=== PATIENT | female | born 1980 | race Caucasian/White ===

== ENCOUNTER 2017-12-08 07:50 | Emergency (ER) | payer OTHER ==
[2017-12-08 08:03] VITALS: RESP 18
[2017-12-08] MEDS ORDERED: RX INFO: IV CONTRAST WAS GIVEN 1 EACH MISC MISCELLANE PRN (08:12)
[2017-12-08] MEDS ORDERED: SODIUM CHLORIDE 0.9% 1,000 ML IV STA ×2 (08:12)
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
[2017-12-08 08:37] LABS: Basophils % (A) 0 %; Eosinophils # (A) 0.1 k/uL (0-0.7); Eosinophils % (A) 1 %; HCT 38.5 % (34.0-46.0); HGB 13.1 gm/dL (11.4-16.0); Lymphocytes # (A) 1.8 k/uL (1.0-4.8); Lymphocytes % (A) 16 %; MCV 85.4 fL (80.0-100.0); Mean Platelet Volume 10.1; Monocytes # (A) 0.5 k/uL (0-1.0); Monocytes % (A) 4 %; Neutrophils % (A) 78 %; Platelet Count 224 k/uL (150-450); RBC 4.51 m/uL (3.80-5.40); WBC 11.5 k/uL (3.8-10.6)
[2017-12-08 08:45] LABS: Appearance,Urine Clear (Clear); Bilirubin,Urine Negative (Negative); Blood,Urine Negative (Negative); Color,Urine Light Yellow; Glucose,Urine (UA) Negative (Negative); Ketones,Urine Negative (Negative); Leukocyte Esterase,Urine Negative (Negative); Nitrite,Urine Negative (Negative); Protein,Urine Negative (Negative); Specific Gravity,Urine 1.006 (1.001-1.035); Urobilinogen,Urine <2.0 mg/dL (<2.0)
[2017-12-08 08:59] LABS: Amphetamine Screen,Urine Detected (NotDetected); Barbiturate Screen,Urine Not Detected (NotDetected); Benzodiazepines Screen,Urine Not Detected (NotDetected); Cocaine Screen,Urine Not Detected (NotDetected); Methadone Screen, Urine Not Detected (NotDetected); Opiate Screen,Urine Not Detected (NotDetected); Oxycodone Screen, Urine Not Detected (NotDetected); Phencyclidine Screen,Urine Not Detected (NotDetected); Tricyclic Antidepressant,Urine Not Detected (NotDetected); Urn Cannabinoid Scrn Not Detected (NotDetected)
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
[2017-12-08 09:39] LABS: ALT 31 U/L (9-52); AST 27 U/L (14-36); Albumin 3.5 g/dL (3.5-5.0); Alkaline Phosphatase 36 U/L (38-126); Anion Gap 13 mmol/L; Blood Urea Nitrogen 10 mg/dL (7-17); Calcium 9.1 mg/dL (8.4-10.2); Carbon Dioxide 22 mmol/L (22-30); Chloride 109 mmol/L (98-107); Glucose 158 mg/dL (74-99); Potassium 4.1 mmol/L (3.5-5.1); Sodium 144 mmol/L (137-145); Total Bilirubin 0.2 mg/dL (0.2-1.3); Total Protein 5.9 g/dL (6.3-8.2)
[2017-12-08 09:46] LABS: Creatine Kinase 87 U/L (30-135)
[2017-12-08 09:48] LABS: Prothrombin Time 9.7 sec (9.0-12.0)
[2017-12-08 09:51] LABS: Partial Thromboplastin Time 21.4 sec (22.0-30.0)
[2017-12-08 09:59] LABS: Creatine Kinase MB 0.5 ng/mL (0.0-2.4); Troponin I <0.012 ng/mL (0.000-0.034)
[2017-12-08 10:16] VITALS: BP 171/90; PULSE 107; TEMP 98.5
== END 2017-12-08 10:30 | disposition home or self-care (01) ==
LOC: EC 07:50
DX: S20.219A Contusion of unspecified front wall of thorax, initial encounter (principal); S30.1XXA Contusion of abdominal wall, initial encounter; N83.201 Unspecified ovarian cyst, right side; Q04.6 Congenital cerebral cysts; M25.532 Pain in left wrist; I10 Essential (primary) hypertension; F32.9 Major depressive disorder, single episode, unspecified; Z79.899 Other long term (current) drug therapy; Z86.69 Personal history of other diseases of the nervous system and sense organs; Z90.49 Acquired absence of other specified parts of digestive tract; V49.40XA Driver injured in collision with unspecified motor vehicles in traffic accident, initial encounter; Y93.89 Activity, other specified; Y92.410 Unspecified street and highway as the place of occurrence of the external cause
CPT/HCPCS: 36415; 93005; 86900; 86901; 80053; 82550; 82553; 84484; 85025; 85610; 85730; 86850; 81003; 80306; 73110; 72125; 70450; 71260; 74177; 99285; 96360; 96361; Q9967

== ENCOUNTER → 2017-12-25 | Outpatient (CLI) | payer BC ==
--- NOTE | 2017-12-25 12:38 | USB ---
Reason for exam: clinical finding. History: Family history of breast cancer in maternal grandmother at age 60 and breast cancer in maternal cousin at age 25. Indicated problem(s): lump or thickening in the left breast. Physical Findings: Nurse Summary: right breast bruising with probable hematoma at nipple extending medial up into upper inner quadrant, all tender on exam (nurse ts). US Breast RT Right complete breast ultrasound includes all four quadrants, the retroareolar region and axilla. Finding demonstrates a 1.2 x 0.7 x 1.4cm cystic lesion at 1 o'clock and a 9.1cm mixed, complex lesion at 2 o'clock, large complex hematoma composed of several smaller hematomas. These results were verbally communicated with the patient and result sheet given to the patient on 12/25/17. ASSESSMENT: Probably benign, BI-RAD 3 RECOMMENDATION: Ultrasound of the right breast in 6 months. Manage patient on a clinical basis.
== END | disposition home or self-care (01) ==
LOC: RADUSWWP 11:22
PROVIDERS: ATTEND Obstetrics & Gynecology Obstetrics
DX: N63.10 Unspecified lump in the right breast, unspecified quadrant (principal); S20.01XA Contusion of right breast, initial encounter

== ENCOUNTER → 2018-07-05 | Outpatient (CLI) | payer BC ==
--- NOTE | 2018-07-05 13:56 | MM ---
Reason for exam: clinical finding. History: Family history of breast cancer in maternal grandmother at age 60 and breast cancer in maternal cousin at age 25. Took hormonal contraceptives for 10 years. Indicated problem(s): lump or thickening in the right breast. Physical Findings: Nurse Summary: 1 x 1.5cm nodule in the right breast at 1 o'clock (nurse ts). MG 3D Diag Mammo W/Cad ADRIANA Bilateral CC and MLO view(s) were taken. There are scattered fibroglandular densities. No suspicious calcifications are seen. There is no discrete abnormality including area of concern. These results were verbally communicated with the patient and result sheet given to the patient on 07/05/18. ASSESSMENT: Incomplete: need additional imaging evaluation, BI-RAD 0 RECOMMENDATION: Ultrasound of the right breast. Manage patient on a clinical basis.
--- NOTE | 2018-07-05 13:58 | USB ---
Reason for exam: clinical finding. History: Family history of breast cancer in maternal grandmother at age 60 and breast cancer in maternal cousin at age 25. Took hormonal contraceptives for 10 years. US Breast RT Right complete breast ultrasound includes all four quadrants, the retroareolar region and axilla. Finding demonstrates a 0.3 x 0.3 x 0.3cm lesion too small to characterize at 12 o'clock, a 0.4 x 0.4 x 0.3cm lesion too small to characterize at 1 o'clock and a 1.7 x 1.1 x 1.4cm mixed lesion at 2 o'clock. Hematomas have improved and/or resolved These results were verbally communicated with the patient and result sheet given to the patient on 07/05/18. ASSESSMENT: Probably benign, BI-RAD 3 RECOMMENDATION: Ultrasound of the right breast in 6 months.
== END ==
LOC: RADMAMWWP 07:39
PROVIDERS: ATTEND Obstetrics & Gynecology Obstetrics
DX: N63.10 Unspecified lump in the right breast, unspecified quadrant (principal); R92.8 Other abnormal and inconclusive findings on diagnostic imaging of breast
CPT/HCPCS: 77062; 77066

== ENCOUNTER → 2018-10-04 | Outpatient (CLI) | payer BC | END | disposition home or self-care (01) | LOC: LABPAT 07:07 | PROVIDERS: ATTEND Anesthesiology | DX: Z01.818 Encounter for other preprocedural examination (principal) | CPT/HCPCS: 93005 ==

== ENCOUNTER → 2019-04-05 | Outpatient (CLI) | payer OTHER ==
[2019-04-05 15:00] LABS: Anisocytosis Slight; Basophils % (A) 0 %; Eosinophils # (A) 0.2 k/uL (0-0.7); Eosinophils % (A) 2 %; HCT 33.6 % (34.0-46.0); HGB 10.7 gm/dL (11.4-16.0); Hypochromasia Slight; Lymphocytes # (A) 2.2 k/uL (1.0-4.8); Lymphocytes % (A) 25 %; MCH 25.9 pg (25.0-35.0); MCHC 31.7 g/dL (31.0-37.0); MCV 81.9 fL (80.0-100.0); Mean Platelet Volume 7.2; Monocytes # (A) 0.5 k/uL (0-1.0); Monocytes % (A) 6 %; Neutrophils # (A) 5.8 k/uL (1.3-7.7); Neutrophils % (A) 65 %; Platelet Count 304 k/uL (150-450); RBC 4.11 m/uL (3.80-5.40); RDW 16.1 % (11.5-15.5); WBC 8.9 k/uL (3.8-10.6)
== END | disposition home or self-care (01) ==
LOC: LABPAT 13:41
PROVIDERS: ATTEND Obstetrics & Gynecology Obstetrics
DX: Z01.812 Encounter for preprocedural laboratory examination (principal); Z01.818 Encounter for other preprocedural examination; I10 Essential (primary) hypertension; N92.0 Excessive and frequent menstruation with regular cycle; N83.201 Unspecified ovarian cyst, right side
CPT/HCPCS: 85025

== ENCOUNTER 2019-04-16 06:27 | Day surgery (SDC) | payer BC, OTHER ==
[2019-04-11 10:31] VITALS: BMI 52.3
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
[~2019-04-16 06:27] MED LIST: ACETAMINOPHEN IV (For NPO) 1,000 MG in EMPTY BAG 1 BAG IVPB ONE; DEXAMETHASONE SOD PHOSPHATE 10 MG/ML 1 ML VIAL IV ONE; LACTATED RINGERS 1,000 ML IV SCH; LIDOCAINE 1% 20 ML VIAL (10MG/ML) FOR IV START INTRADERMA PRN; MIDAZOLAM 2 MG/2 ML VIAL IV PRN; ONDANSETRON 4 MG/2 ML VIAL IVP ONE; Pre Op ABX Message 1 EACH MISC MISCELLANE ONE; SCOPOLAMINE 1.5MG/72HR PATCH TRANSDERM ONE
[2019-04-16] MEDS ORDERED: DEXAMETHASONE SOD PHOSPHATE 10 MG/ML 1 ML VIAL ONE (07:10)
[2019-04-16] MEDS ORDERED: MIDAZOLAM 2 MG/2 ML VIAL ONE ×2 (07:10→07:33)
[2019-04-16] MEDS ORDERED: ONDANSETRON 4 MG/2 ML VIAL ONE ×2 (07:10)
[2019-04-16] MEDS ORDERED: BUPIVACAINE (PF) 0.25% 30 ML VIAL ONE (07:10)
[2019-04-16] MEDS ORDERED: ROCURONIUM BROMIDE 10 MG/ML 10 ML VIAL IV ONE (07:33)
[2019-04-16] MEDS ORDERED: ePHEDrine SULFATE/0.9% NACL/PF 50 MG/5 ML SYRINGE IV ONE (07:33)
[2019-04-16] MEDS ORDERED: fentaNYL (PF) 50 MCG/ML 2 ML AMP ONE (07:33)
[2019-04-16] MEDS ORDERED: GLYCOPYRROLATE 0.2 MG/ML 2 ML VIAL ONE (07:33)
[2019-04-16] MEDS ORDERED: ACETAMINOPHEN IV (For NPO) 1,000 MG/100 ML VIAL ONE (07:33)
[2019-04-16] MEDS ORDERED: LIDOCAINE 1% INJ 10MG/ML (20 ML MDV) ONE (07:33)
[2019-04-16] MEDS ORDERED: KETOROLAC 30 MG/ML 1 ML VIAL ONE (07:33)
[2019-04-16] MEDS ORDERED: PROPOFOL 10 MG/ML 20 ML VIAL IV ONE (07:33)
[2019-04-16] MEDS ORDERED: NEOSTIGMINE 1 MG/ML 10 ML VIAL ONE (07:33)
[2019-04-16] MEDS ORDERED: SUCCINYLCHOLINE CHLORIDE VIAL 200 MG/10 ML VIAL IV ONE (07:33)
[2019-04-16] MEDS ORDERED: SODIUM CHLORIDE 0.9% 50 ML with ceFAZolin 2,000 MG IV ONE ×2 (07:55)
[2019-04-16] MEDS ORDERED: BUPIVACAINE (PF) 0.25% 30 ML VIAL SQ ONE (08:09)
[2019-04-16] MEDS ORDERED: LACTATED RINGERS 1,000 ML IV ONE (08:36)
--- NOTE | 2019-04-16 08:59 | P.OP ---
Date of Procedure: 04/16/19 Preoperative Diagnosis: Large right ovarian simple cyst, menorrhagia, failed medical treatment. Postoperative Diagnosis: Same plus paratubal cyst, right Procedure(s) Performed: Operative laparoscopy with drainage of right paratubal cyst, drainage of right ovarian cyst, hysteroscopy, dilation and curettage, endometrial ablation with NovaSure Anesthesia: LORRAINE Surgeon: Mar Cornejo Estimated Blood Loss (ml): 5 IV fluids (ml): 800 Urine output (ml): 100 Pathology: other (Endometrial curettings) Condition: stable Disposition: PACU Indications for Procedure: Irregular heavy menses, known large right ovarian simple appearing cyst with failed medical treatment of her periods. Patient desires endometrial ablation. Operative Findings: Large right paratubal cyst is noted, simple right ovarian cyst is noted in addition. Proliferative endometrial cavity is noted on hysteroscopy. Description of Procedure: Patient was seen in the preoperative area and informed consent Patient was taken back to the operating suite where general anesthesia was obtained without difficulty by the anesthesia department. She was then prepped and draped in normal sterile fashion in the dorsal lithotomy position. A red rubber catheter was then used to drain the bladder of clear yellow urine weighted speculum was placed in the posterior vaginal vault intralipids the cervix is visualized and an acorn uterine manipulator was advanced into the uterus as a means to manipulate the uterus throughout the procedure. Attention was then turned to the patient's abdomen where in the umbilical fold a small skin incision is made through this incision the 5 mm trocar and sleeve is placed with the laparoscope in place through the skin incision and toward the abdomen under direct visualization. CO2 insufflation was allowed to occur approximately 3 L of gas were used to obtain pneumoperitoneum. The above-noted findings were visualized. Lateral to the umbilicus on the right side a second 8 mm skin incision is made and a 8 mm trocar and sleeve is placed through the skin incision and toward the pneumoperitoneum under direct visualization. The Filshie clip applicator was then advanced into the abdomen and fallopian tubes were grasped and clamped with Filshie clips 2. Good application was noted bilaterally. The monopolar scissors one was then introduced into the abdomen the paratubal cyst was incised and drained. This was then repeated on the ovarian cyst. Clear straw-colored fluid was noted on both. The suction state tested nursing assistant was then used to drain the cyst fluid from the abdomen. At this point all instruments removed from the patient's abdomen and the skin incisions were closed with 4-0 Vicryl in a subarticular fashion. Attention was then turned to the patient's vaginal vault where the acorn uterine manipulator was removed from the patient's cervix the endocervical canal was then dilated to 16-Latvian, the hysteroscope was placed through the cervix and toward the endometrial cavity a proliferative endometrium was noted. At this time the hysteroscope was removed and sharp curettage was performed this specimen was then sent to pathology for analysis. The NovaSure device was then opened and set to the patient's uterine measurements a length of 6, width of 3.7, power of 122 for a cycle length of 77 seconds after cavity assessment was passed. At the cycle has completed the device was removed intact. The single-tooth tenaculum was taken off of the anterior lip the cervix and hemostasis was appreciated. All counts are correct 2 patient tolerated procedure well and was taken to the recovery room awake in stable condition.
[2019-04-16 09:02] VITALS: TEMP 97.4
[2019-04-16] MEDS: HYDROmorphone 0.5 MG/0.5 ML SYRINGE IVP PRN ×2 (09:52→10:01)
[2019-04-16] MEDS ORDERED: ONDANSETRON 4 MG/2 ML VIAL IVP ONE (10:54)
[2019-04-16] MEDS ORDERED: HYDROmorphone 0.5 MG/0.5 ML SYRINGE IVP ONE (10:54)
[2019-04-16 11:11] VITALS: RESP 18
[2019-04-16 11:29] VITALS: BP 126/72; PULSE 99
== END 2019-04-16 12:02 | disposition home or self-care (01) ==
LOC: OR 06:27
PROVIDERS: ATTEND Obstetrics & Gynecology Obstetrics
DX: Z30.2 Encounter for sterilization (principal); N84.0 Polyp of corpus uteri; N83.291 Other ovarian cyst, right side; N83.8 Other noninflammatory disorders of ovary, fallopian tube and broad ligament; D64.9 Anemia, unspecified; I10 Essential (primary) hypertension; R01.1 Cardiac murmur, unspecified; G47.33 Obstructive sleep apnea (adult) (pediatric); Z90.49 Acquired absence of other specified parts of digestive tract; E66.01 Morbid (severe) obesity due to excess calories; Z68.43 Body mass index [BMI] 50.0-59.9, adult; F41.9 Anxiety disorder, unspecified; R41.3 Other amnesia; F32.9 Major depressive disorder, single episode, unspecified; Z79.899 Other long term (current) drug therapy
CPT/HCPCS: 94660; 81025; 88305; 58563; 58679; 58671; J2250; J0330; J1100; J2710; J2405; J0690; J2001; J3010; J1885; J0131; J2704; J1170

== ENCOUNTER → 2019-05-01 | Outpatient (CLI) | payer OTHER ==
--- NOTE | 2019-05-01 17:10 | XR ---
EXAMINATION TYPE: XR chest 2V DATE OF EXAM: 05/01/2019 COMPARISON: NONE HISTORY: Cough and congestion TECHNIQUE: Frontal and lateral views of the chest are obtained. FINDINGS: Heart and mediastinum are normal. Lungs are clear. Diaphragm is normal. Bony thorax appear s normal. IMPRESSION: Normal chest
== END ==
LOC: LABWHC1 16:11
PROVIDERS: ATTEND Obstetrics & Gynecology Obstetrics
DX: R05 Cough (principal); R50.9 Fever, unspecified; R06.02 Shortness of breath; R09.89 Other specified symptoms and signs involving the circulatory and respiratory systems
CPT/HCPCS: 71046

== ENCOUNTER → 2019-09-30 | Outpatient (CLI) | payer OTHER | END | disposition home or self-care (01) | DX: N63.10 Unspecified lump in the right breast, unspecified quadrant (principal) ==

== ENCOUNTER → 2019-10-04 | Outpatient (CLI) | payer OTHER ==
--- NOTE | 2019-10-04 12:09 | MM ---
Reason for exam: additional evaluation requested from prior study. Last mammogram was performed 1 year and 3 months ago. History: Family history of breast cancer in maternal grandmother at age 60 and breast cancer in maternal cousin at age 25. Took hormonal contraceptives for 10 years. Physical Findings: Nurse did not find any significant physical abnormalities on exam. MG 3D Work Up W/Cad RT CC and MLO view(s) were taken of the right breast. Prior study comparison: July 05, 2018, bilateral MG 3d diag mammo w/cad ADRIANA. The breast tissue is heterogeneously dense. This may lower the sensitivity of mammography. There is a peripherally calcified area of fat necrosis/oil cysts at the site of recent ultrasound in the upper inner quadrant a 2 o'clock. This was smaller on the most recent ultrasound that the prior of 07/05/18. These results were verbally communicated with the patient and result sheet given to the patient on 10/04/19. ASSESSMENT: Benign, BI-RAD 2 RECOMMENDATION: Routine screening mammogram of both breasts at age 41. (or sooner if clinically indicated)
== END | disposition home or self-care (01) ==
LOC: RADMAMWWP 11:04
PROVIDERS: ATTEND Obstetrics & Gynecology Obstetrics
DX: N63.12 Unspecified lump in the right breast, upper inner quadrant (principal); Z80.3 Family history of malignant neoplasm of breast
CPT/HCPCS: 77061; 77065

== ENCOUNTER 2019-12-01 08:27 | Emergency (ER) | payer OTHER ==
[2019-12-01 08:33] VITALS: TEMP 98.5
[2019-12-01] MEDS ORDERED: ONDANSETRON 4 MG/2 ML VIAL IVP STA (08:43)
[2019-12-01] MEDS ORDERED: PANTOPRAZOLE 40 MG/10 ML VIAL IVP STA (08:43)
[2019-12-01] MEDS ORDERED: IOPAMIDOL CONTRAST (ORAL USE) VIAL PO PRN (08:43)
[2019-12-01] MEDS ORDERED: SODIUM CHLORIDE 0.9% 1,000 ML IV STA (08:43)
[2019-12-01] MEDS ORDERED: DICYCLOMINE 10 MG/ML 2 ML AMP IM STA (08:43)
--- NOTE | 2019-12-01 08:46 | ED ---
General Adult HPI - General Chief complaint: Abdominal Pain Stated complaint: Abd Pain Time Seen by Provider: 12/01/19 08:34 Source: patient, RN notes reviewed Mode of arrival: ambulatory Limitations: no limitations - History of Present Illness Initial comments: Patient is a pleasant 39-year-old female presenting to the emergency Department with complaints of abdominal discomfort. Patient has had chronic abdominal problems for years, she questions if this is from having her gallbladder removed. Patient states she frequently has discomfort with eating and loose stools. Patient has had some minimal amount of blood in stools over the past month. Over the past week patient has had some discomfort left upper abdomen. Discomfort is moderate. Patient does get some nausea. No fever. - Related Data Home Medications Medication Instructions Recorded Confirmed Ferrous Sulfate [Feosol] 325 mg PO DAILY 12/08/17 04/16/19 Loratadine [Claritin] 10 mg PO DAILY PRN 12/08/17 04/16/19 Multivitamins, Thera [Multivitamin 1 tab PO DAILY 12/08/17 04/16/19 (formulary)] amLODIPine [Norvasc] 5 mg PO QAM 04/11/19 04/16/19 Misoprostol [Cytotec] 200 mcg PO ONCE 04/16/19 04/16/19 Previous Rx's Medication Instructions Recorded Dicyclomine [Bentyl] 20 mg PO QID #20 tablet 12/01/19 Ondansetron Odt [Zofran Odt] 4 mg PO Q8HR PRN #10 tab 12/01/19 Pantoprazole [Protonix] 40 mg PO DAILY #30 tablet. 12/01/19 Allergies Allergy/AdvReac Type Severity Reaction Status Date / Time No Known Allergies Allergy Verified 04/16/19 06:47 Review of Systems ROS Statement: Those systems with pertinent positive or pertinent negative responses have been documented in the HPI. ROS Other: All systems not noted in ROS Statement are negative. Constitutional: Denies: fever Eyes: Denies: eye pain ENT: Denies: ear pain Respiratory: Denies: cough Cardiovascular: Denies: chest pain Endocrine: Denies: fatigue Gastrointestinal: Reports: as per HPI, abdominal pain, nausea. Denies: vomiting Genitourinary: Denies: dysuria Musculoskeletal: Denies: back pain Skin: Denies: rash Neurological: Denies: weakness Past Medical History Past Medical History: Hypertension, Memory Impairment, Sleep Apnea/CPAP/BIPAP, Syncope Additional Past Medical History / Comment(s): Has had heart murmur since . Occasional heart paliptations. 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 No CPAP use. History of Any Multi-Drug Resistant Organisms: None Reported Past Surgical History: Cholecystectomy, Tubal Ligation Past Anesthesia/Blood Transfusion Reactions: No Reported Reaction Past Psychological History: Anxiety, Depression Smoking Status: Never smoker Past Alcohol Use History: Rare Past Drug Use History: None Reported - Past Family History Father Family Medical History: Unable to Obtain Mother Family Medical History: Congestive Heart Failure (CHF), CVA/TIA, Hyperlipidemia, Hypertension Brother(s) Family Medical History: Cancer General Exam Limitations: no limitations General appearance: alert, in no apparent distress, obese Head exam: Present: normocephalic Eye exam: Present: normal appearance Neck exam: Present: normal inspection Respiratory exam: Present: normal lung sounds bilaterally Cardiovascular Exam: Present: regular rate, normal rhythm Expanded Peripheral pulses: 2+: Dorsalis Pedis (R), Dorsalis Pedis (L) GI/Abdominal exam: Present: soft, tenderness (Mild to moderate tenderness left upper quadrant), normal bowel sounds. Absent: distended, guarding, rebound, pulsatile mass, hernia Extremities exam: Present: normal inspection Neurological exam: Present: alert Psychiatric exam: Present: normal affect, normal mood Skin exam: Present: normal color Course Vital Signs 12/01/19 08:31 Temperature 98.5 F Pulse Rate 82 Respiratory 16 Rate Blood Pressure 180/94 O2 Sat by Pulse 97 Oximetry Medical Decision Making - Medical Decision Making Patient reevaluated and resting comfortably in bed. Abdomen soft and nontender. Patient updated on results and need for follow-up. Patient states she has previously seen Dr. Cornejo for her right ovary and will follow-up again. Patient also advised follow-up with GI for endoscopy. - Lab Data Result diagrams: 12/01/19 09:00 12/01/19 09:00 Lab Results 12/01/19 12/01/19 12/01/19 Range/Units 09:00 09:00 09:00 WBC 9.0 (3.8-10.6) k/uL RBC 4.86 (3.80-5.40) m/uL Hgb 13.2 (11.4-16.0) gm/dL Hct 40.7 (34.0-46.0) % MCV 83.7 (80.0-100.0) fL MCH 27.1 (25.0-35.0) pg MCHC 32.4 (31.0-37.0) g/dL RDW 14.8 (11.5-15.5) % Plt Count 228 (150-450) k/uL Neutrophils % 63 % Lymphocytes % 25 % Monocytes % 7 % Eosinophils % 2 % Basophils % 0 % Neutrophils # 5.7 (1.3-7.7) k/uL Lymphocytes # 2.3 (1.0-4.8) k/uL Monocytes # 0.6 (0-1.0) k/uL Eosinophils # 0.1 (0-0.7) k/uL Basophils # 0.0 (0-0.2) k/uL PT 9.7 (9.0-12.0) sec INR 0.9 (<1.2) APTT 22.4 (22.0-30.0) sec Sodium (137-145) mmol/L Potassium (3.5-5.1) mmol/L Chloride (98-107) mmol/L Carbon Dioxide (22-30) mmol/L Anion Gap mmol/L BUN (7-17) mg/dL Creatinine (0.52-1.04) mg/dL Est GFR (CKD-EPI)AfAm (>60 ml/min/1.73 sqM) Est GFR (CKD-EPI)NonAf (>60 ml/min/1.73 sqM) Glucose (74-99) mg/dL Calcium (8.4-10.2) mg/dL Total Bilirubin (0.2-1.3) mg/dL AST (14-36) U/L ALT (4-34) U/L Alkaline Phosphatase (38-126) U/L Total Protein (6.3-8.2) g/dL Albumin (3.5-5.0) g/dL Amylase (30-110) U/L Lipase (23-300) U/L Urine Color Yellow Urine Appearance Cloudy H (Clear) Urine pH 5.5 (5.0-8.0) Ur Specific [place] 1.027 (1.001-1.035) Urine Protein Trace H (Negative) Urine Glucose (UA) Negative (Negative) Urine Ketones Negative (Negative) Urine Blood Trace H (Negative) Urine Nitrite Negative (Negative) Urine Bilirubin Negative (Negative) Urine Urobilinogen <2.0 (<2.0) mg/dL Ur Leukocyte Esterase Large H (Negative) Urine RBC 6 H (0-5) /hpf Urine WBC 11 H (0-5) /hpf Ur Squamous Epith Cells 20 H (0-4) /hpf Amorphous Sediment Rare H (None) /hpf Urine Bacteria Occasional H (None) /hpf Urine Mucus Rare H (None) /hpf 12/01/19 Range/Units 09:00 WBC (3.8-10.6) k/uL RBC (3.80-5.40) m/uL Hgb (11.4-16.0) gm/dL Hct (34.0-46.0) % MCV (80.0-100.0) fL MCH (25.0-35.0) pg MCHC (31.0-37.0) g/dL RDW (11.5-15.5) % Plt Count (150-450) k/uL Neutrophils % % Lymphocytes % % Monocytes % % Eosinophils % % Basophils % % Neutrophils # (1.3-7.7) k/uL Lymphocytes # (1.0-4.8) k/uL Monocytes # (0-1.0) k/uL Eosinophils # (0-0.7) k/uL Basophils # (0-0.2) k/uL PT (9.0-12.0) sec INR (<1.2) APTT (22.0-30.0) sec Sodium 139 (137-145) mmol/L Potassium 3.6 (3.5-5.1) mmol/L Chloride 100 (98-107) mmol/L Carbon Dioxide 27 (22-30) mmol/L Anion Gap 12 mmol/L BUN 14 (7-17) mg/dL Creatinine 0.60 (0.52-1.04) mg/dL Est GFR (CKD-EPI)AfAm >90 (>60 ml/min/1.73 sqM) Est GFR (CKD-EPI)NonAf >90 (>60 ml/min/1.73 sqM) Glucose 151 H (74-99) mg/dL Calcium 9.9 (8.4-10.2) mg/dL Total Bilirubin 0.3 (0.2-1.3) mg/dL AST 30 (14-36) U/L ALT 24 (4-34) U/L Alkaline Phosphatase 58 (38-126) U/L Total Protein 7.6 (6.3-8.2) g/dL Albumin 4.5 (3.5-5.0) g/dL Amylase 44 (30-110) U/L Lipase 342 H (23-300) U/L Urine Color Urine Appearance (Clear) Urine pH (5.0-8.0) Ur Specific [place] (1.001-1.035) Urine Protein (Negative) Urine Glucose (UA) (Negative) Urine Ketones (Negative) Urine Blood (Negative) Urine Nitrite (Negative) Urine Bilirubin (Negative) Urine Urobilinogen (<2.0) mg/dL Ur Leukocyte Esterase (Negative) Urine RBC (0-5) /hpf Urine WBC (0-5) /hpf Ur Squamous Epith Cells (0-4) /hpf Amorphous Sediment (None) /hpf Urine Bacteria (None) /hpf Urine Mucus (None) /hpf - Radiology Data Radiology results: image reviewed (Enlarged cystic lesion right ovary. Hepatomegaly.) Disposition Clinical Impression: Abdominal pain Disposition: HOME SELF-CARE Condition: Stable Instructions (If sedation given, give patient instructions): Abdominal Pain (ED) Additional Instructions: Please follow-up with primary care physician in the next couple days for recheck. Also follow-up with GI and [facility]S ADMINISTRATOR. you will likely need endoscopy. Have ARTS ADMINISTRATOR evaluate computed tomography scan. Prescription sent to [facility] in [place] Prescriptions: Dicyclomine [Bentyl] 20 mg PO QID #20 tablet Pantoprazole [Protonix] 40 mg PO DAILY #30 tablet. Ondansetron Odt [Zofran Odt] 4 mg PO Q8HR PRN #10 tab PRN Reason: Nausea Is patient prescribed a controlled substance at d/c from ED?: No Referrals: Keagan Garrison MD [Primary Care Provider] - 1-2 days Mar Cornejo DO [Doctor of Osteopathic Medicine] - 1-2 days Wali Chavez MD [STAFF PHYSICIAN] - 1-2 days Time of Disposition: 10:01
[2019-12-01 09:29] LABS: ALT 24 U/L (4-34); AST 30 U/L (14-36); African American GFR (CKD) >90 (>60 ml/min/1.73 sqM); Albumin 4.5 g/dL (3.5-5.0); Alkaline Phosphatase 58 U/L (38-126); Amylase 44 U/L (30-110); Anion Gap 12 mmol/L; Blood Urea Nitrogen 14 mg/dL (7-17); Calcium 9.9 mg/dL (8.4-10.2); Carbon Dioxide 27 mmol/L (22-30); Chloride 100 mmol/L (98-107); Glucose 151 mg/dL (74-99); Non-African American GFR(CKD) >90 (>60 ml/min/1.73 sqM); Potassium 3.6 mmol/L (3.5-5.1); Sodium 139 mmol/L (137-145); Total Bilirubin 0.3 mg/dL (0.2-1.3); Total Protein 7.6 g/dL (6.3-8.2)
[2019-12-01 09:32] LABS: INR 0.9 (<1.2); Partial Thromboplastin Time 22.4 sec (22.0-30.0); Prothrombin Time 9.7 sec (9.0-12.0)
[2019-12-01 09:41] LABS: Basophils % (A) 0 %; Eosinophils # (A) 0.1 k/uL (0-0.7); Eosinophils % (A) 2 %; HCT 40.7 % (34.0-46.0); HGB 13.2 gm/dL (11.4-16.0); Lymphocytes # (A) 2.3 k/uL (1.0-4.8); Lymphocytes % (A) 25 %; MCH 27.1 pg (25.0-35.0); MCHC 32.4 g/dL (31.0-37.0); MCV 83.7 fL (80.0-100.0); Mean Platelet Volume 8.3; Monocytes # (A) 0.6 k/uL (0-1.0); Monocytes % (A) 7 %; Neutrophils # (A) 5.7 k/uL (1.3-7.7); Neutrophils % (A) 63 %; Platelet Count 228 k/uL (150-450); RBC 4.86 m/uL (3.80-5.40); RDW 14.8 % (11.5-15.5)
[2019-12-01 09:49] LABS: Amorphous Sediment,Urine Rare /hpf; Appearance,Urine Cloudy (Clear); Bacteria,Urine Occasional /hpf; Bilirubin,Urine Negative (Negative); Blood,Urine Trace (Negative); Color,Urine Yellow; Glucose,Urine (UA) Negative (Negative); Ketones,Urine Negative (Negative); Leukocyte Esterase,Urine Large (Negative); Mucus,Urine Rare /hpf; Nitrite,Urine Negative (Negative); PH, Urine 5.5 (5.0-8.0); Protein,Urine Trace (Negative); RBC,Urine 6 /hpf (0-5); Specific Gravity,Urine 1.027 (1.001-1.035); Squamous Epithelial Cell,Urine 20 /hpf (0-4); Urobilinogen,Urine <2.0 mg/dL (<2.0); WBC,Urine 11 /hpf (0-5)
--- NOTE | 2019-12-01 09:50 | CT ---
EXAMINATION TYPE: CT abdomen pelvis w con DATE OF EXAM: 12/01/2019 REFERENCE: Previous CT scan of the chest, abdomen and pelvis dated 12/08/2017. HISTORY: 15 minute oral contrast, abdominal pain HISTORY: LUQ pain REFERENCE: NONE CT DLP: 3341 mGy Automated exposure control for dose reduction was used. TECHNIQUE: Helical acquisition through the abdomen and pelvis was obtained following the oral ingesti on of with Oral Contrast and following intravenous administration of 100 mL of Isovue 300. The data w as reformatted in axial, coronal and sagittal projections. FINDINGS: Visualized portions of the lungs are clear. There is no pleural or pericardial fluid. The heart is minimally enlarged. Within the abdomen, the liver is enlarged measuring 25 cm. It is low in attenuation and likely fatty infiltrated. The gallbladder is been removed. The spleen is unremarkable. Both adrenal glands are normal. Both kidneys demonstrate function and appear morphologically normal. The pancreas is unremarkable. There is no significant retroperitoneal, iliac or inguinal adenopathy. The bladder is unremarkable. The uterus is normal. There is been a previous tubal ligation. There is a midline cystic lesion measuring 11.5 x 8.4 x 9.4 cm in the midline and slightly eccentric towards the right within the pelvis. Previously this measured 6.7 x 5.8 x 4.8 cm. There is no significant diverticular change and there is no radiographic evidence of diverticulitis. The appendix is normal. Small bowel loops are normal in caliber. There is no free fluid and no free air. No osseous lesion is seen. IMPRESSION: 1. ENLARGING CYSTIC LESION INVOLVING LIKELY THE RIGHT OVARY. THIS HAS GROWN SLOWLY OVER THE PREVIOUS 2 YEARS MAKING MALIGNANT NEOPLASM UNLIKELY. A CYSTADENOMA, HOWEVER, COULD HAVE THIS APPEARANCE. 2. HEPATOMEGALY AND FATTY INFILTRATION OF THE LIVER. 3. MILD CARDIOMEGALY.
[2019-12-01 10:45] VITALS: BP 142/79; PULSE 88; RESP 18
== END 2019-12-01 10:45 | disposition home or self-care (01) ==
LOC: EC 08:27
DX: R10.9 Unspecified abdominal pain (principal); R11.0 Nausea; R19.7 Diarrhea, unspecified; I10 Essential (primary) hypertension; Z79.899 Other long term (current) drug therapy; Z90.49 Acquired absence of other specified parts of digestive tract
CPT/HCPCS: 36415; 80053; 82150; 83690; 85025; 85610; 85730; 81001; 87086; 74177; 99284; 96374; 96375; 96361 ×2; 96372; J0500; J2405; C9113; Q9967

== ENCOUNTER 2021-05-11 18:35 | Emergency (ER) | payer BC, OTHER ==
--- NOTE | 2021-05-11 21:21 | ED ---
General Adult HPI - General Source: patient, RN notes reviewed, old records reviewed Mode of arrival: ambulatory Limitations: no limitations - History of Present Illness -: month(s) (6) Location: abdomen, pelvis Severity scale (1-10): 4 <Robin Aguirre - Last Filed: 05/11/21 21:29> <Sander Mendez - Last Filed: 05/12/21 02:06> - General Chief complaint: Abdominal Pain Stated complaint: pelvic pain Time Seen by Provider: 05/11/21 21:08 - History of Present Illness Initial comments: 41-year-old well-appearing female presents to the emergency room with complaints of 6 months of pelvic pain. Patient states she seen her DRILL PRESS HAND and is scheduled to have an ultrasound next week however she states that she does have jury duty next week and wants the ultrasound now. She denies any vaginal bleeding. She states that she has been having some rectal bleeding as well as past 6 months states sometimes it is just on the paper and sometimes it is in the toilet. She is in color. She has a history of a martha, tubal ligation and ablation. She states that she did see Dr. Jacob in the past but now it is gone. She was told that she does need to have a colonoscopy but she has not scheduled that. Patient is very anxious and is concerned for ovarian cancer. She states that her paternal grandmother had reproductive cancer and her half-brother had a cancer that metastasized to his bones and he . (Robin Aguirre) - Related Data Home Medications Medication Instructions Recorded Confirmed Ferrous Sulfate [Feosol] 325 mg PO DAILY 12/08/17 05/11/21 Loratadine [Claritin] 10 mg PO DAILY PRN 12/08/17 05/11/21 Amlodipine(Unknown Dose) 1 tab PO DAILY 05/11/21 05/11/21 Ergocalciferol [Vitamin D2 (1250 1,250 mcg PO MO 05/11/21 05/11/21 Mcg = 46953 Iu)] Fluticasone Nasal [place] [Flonase 1 spray EA NOSTRIL DAILY PRN 05/11/21 05/11/21 Nasal [place]] Allergies Allergy/AdvReac Type Severity Reaction Status Date / Time No Known Allergies Allergy Verified 05/11/21 18:59 Review of Systems ROS Other: All systems not noted in ROS Statement are negative. <Robin Aguirre - Last Filed: 05/11/21 21:29> ROS Other: All systems not noted in ROS Statement are negative. <Sander Mendez - Last Filed: 05/12/21 02:06> ROS Statement: Those systems with pertinent positive or pertinent negative responses have been documented in the HPI. Past Medical History Past Medical History: Hypertension, Memory Impairment, Sleep Apnea/CPAP/BIPAP, Syncope Additional Past Medical History / Comment(s): Has had heart murmur since . Occasional heart paliptations. 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 No CPAP use. History of Any Multi-Drug Resistant Organisms: None Reported Past Surgical History: Cholecystectomy, Tubal Ligation Past Anesthesia/Blood Transfusion Reactions: No Reported Reaction Past Psychological History: Anxiety, Depression Smoking Status: Never smoker Past Alcohol Use History: Rare Past Drug Use History: None Reported - Past Family History Father Family Medical History: Unable to Obtain Mother Family Medical History: Congestive Heart Failure (CHF), CVA/TIA, Hyperlipidemia, Hypertension Brother(s) Family Medical History: Cancer <Robin Aguirre - Last Filed: 05/11/21 21:29> General Exam Limitations: no limitations General appearance: alert, in no apparent distress Head exam: Present: atraumatic, normocephalic, normal inspection Eye exam: Present: normal appearance, PERRL, EOMI. Absent: scleral icterus, conjunctival injection, periorbital swelling ENT exam: Present: normal exam, normal oropharynx, mucous membranes moist Neck exam: Present: normal inspection, full ROM. Absent: tenderness, meningismus, lymphadenopathy Respiratory exam: Present: normal lung sounds bilaterally. Absent: respiratory distress, wheezes, rales, rhonchi, stridor Cardiovascular Exam: Present: normal rhythm, tachycardia, normal heart sounds. Absent: systolic murmur, diastolic murmur, rubs, gallop, clicks GI/Abdominal exam: Present: soft, normal bowel sounds. Absent: distended, tenderness, guarding, rebound, rigid, mass Extremities exam: Present: normal inspection, full ROM, normal capillary refill. Absent: tenderness, pedal edema, joint swelling, calf tenderness Back exam: Present: full ROM. Absent: tenderness, CVA tenderness (R), CVA tenderness (L), rash noted Neurological exam: Present: alert, oriented X3 Psychiatric exam: Present: normal affect, anxious Skin exam: Present: warm, dry, intact, normal color. Absent: rash, cyanosis, diaphoretic, petechiae, pallor <Robin Aguirre - Last Filed: 05/11/21 21:29> Course Vital Signs 05/11/21 05/11/21 05/12/21 18:57 22:37 00:26 Temperature 100.1 F H Pulse Rate 109 H 96 Respiratory 20 16 Rate Blood Pressure 201/102 148/106 148/91 O2 Sat by Pulse 98 96 Oximetry Medical Decision Making - Lab Data Result diagrams: 05/11/21 22:25 05/11/21 22:25 <Sander Mendez - Last Filed: 05/12/21 02:06> - Lab Data Lab Results 05/11/21 05/11/21 05/11/21 Range/Units 22:25 22:25 22:25 WBC 11.1 H (3.8-10.6) k/uL RBC 5.20 (3.80-5.40) m/uL Hgb 13.9 (11.4-16.0) gm/dL Hct 43.5 (34.0-46.0) % MCV 83.6 (80.0-100.0) fL MCH 26.7 (25.0-35.0) pg MCHC 32.0 (31.0-37.0) g/dL RDW 14.3 (11.5-15.5) % Plt Count 249 (150-450) k/uL MPV 7.8 Neutrophils % 70 % Lymphocytes % 21 % Monocytes % 5 % Eosinophils % 1 % Basophils % 1 % Neutrophils # 7.8 H (1.3-7.7) k/uL Lymphocytes # 2.3 (1.0-4.8) k/uL Monocytes # 0.6 (0-1.0) k/uL Eosinophils # 0.2 (0-0.7) k/uL Basophils # 0.1 (0-0.2) k/uL PT 10.4 (9.0-12.0) sec INR 1.0 (<1.2) APTT 22.5 (22.0-30.0) sec Sodium (137-145) mmol/L Potassium (3.5-5.1) mmol/L Chloride (98-107) mmol/L Carbon Dioxide (22-30) mmol/L Anion Gap mmol/L BUN (7-17) mg/dL Creatinine (0.52-1.04) mg/dL Est GFR (CKD-EPI)AfAm (>60 ml/min/1.73 sqM) Est GFR (CKD-EPI)NonAf (>60 ml/min/1.73 sqM) Glucose (74-99) mg/dL Lactic Ac Sepsis Rflx Plasma Lactic Acid Juvenal (0.7-2.0) mmol/L Calcium (8.4-10.2) mg/dL Total Bilirubin (0.2-1.3) mg/dL AST (14-36) U/L ALT (4-34) U/L Alkaline Phosphatase (38-126) U/L Total Protein (6.3-8.2) g/dL Albumin (3.5-5.0) g/dL Amylase (30-110) U/L Lipase (23-300) U/L Urine Color Yellow Urine Appearance Clear (Clear) Urine pH 6.5 (5.0-8.0) Ur Specific [place] 1.014 (1.001-1.035) Urine Protein Negative (Negative) Urine Glucose (UA) Negative (Negative) Urine Ketones Negative (Negative) Urine Blood Negative (Negative) Urine Nitrite Negative (Negative) Urine Bilirubin Negative (Negative) Urine Urobilinogen <2.0 (<2.0) mg/dL Ur Leukocyte Esterase Negative (Negative) 05/11/21 05/11/21 05/11/21 Range/Units 22:25 22:25 22:46 WBC (3.8-10.6) k/uL RBC (3.80-5.40) m/uL Hgb (11.4-16.0) gm/dL Hct (34.0-46.0) % MCV (80.0-100.0) fL MCH (25.0-35.0) pg MCHC (31.0-37.0) g/dL RDW (11.5-15.5) % Plt Count (150-450) k/uL MPV Neutrophils % % Lymphocytes % % Monocytes % % Eosinophils % % Basophils % % Neutrophils # (1.3-7.7) k/uL Lymphocytes # (1.0-4.8) k/uL Monocytes # (0-1.0) k/uL Eosinophils # (0-0.7) k/uL Basophils # (0-0.2) k/uL PT (9.0-12.0) sec INR (<1.2) APTT (22.0-30.0) sec Sodium 137 (137-145) mmol/L Potassium 4.0 (3.5-5.1) mmol/L Chloride 99 (98-107) mmol/L Carbon Dioxide 27 (22-30) mmol/L Anion Gap 11 mmol/L BUN 9 (7-17) mg/dL Creatinine 0.55 (0.52-1.04) mg/dL Est GFR (CKD-EPI)AfAm >90 (>60 ml/min/1.73 sqM) Est GFR (CKD-EPI)NonAf >90 (>60 ml/min/1.73 sqM) Glucose 173 H (74-99) mg/dL Lactic Ac Sepsis Rflx Y Plasma Lactic Acid Juvenal 2.5 H* (0.7-2.0) mmol/L Calcium 9.6 (8.4-10.2) mg/dL Total Bilirubin 0.5 (0.2-1.3) mg/dL AST 59 H (14-36) U/L ALT 38 H (4-34) U/L Alkaline Phosphatase 68 (38-126) U/L Total Protein 7.7 (6.3-8.2) g/dL Albumin 4.3 (3.5-5.0) g/dL Amylase 43 (30-110) U/L Lipase 192 (23-300) U/L Urine Color Urine Appearance (Clear) Urine pH (5.0-8.0) Ur Specific [place] (1.001-1.035) Urine Protein (Negative) Urine Glucose (UA) (Negative) Urine Ketones (Negative) Urine Blood (Negative) Urine Nitrite (Negative) Urine Bilirubin (Negative) Urine Urobilinogen (<2.0) mg/dL Ur Leukocyte Esterase (Negative) 05/12/21 Range/Units 01:15 WBC (3.8-10.6) k/uL RBC (3.80-5.40) m/uL Hgb (11.4-16.0) gm/dL Hct (34.0-46.0) % MCV (80.0-100.0) fL MCH (25.0-35.0) pg MCHC (31.0-37.0) g/dL RDW (11.5-15.5) % Plt Count (150-450) k/uL MPV Neutrophils % % Lymphocytes % % Monocytes % % Eosinophils % % Basophils % % Neutrophils # (1.3-7.7) k/uL Lymphocytes # (1.0-4.8) k/uL Monocytes # (0-1.0) k/uL Eosinophils # (0-0.7) k/uL Basophils # (0-0.2) k/uL PT (9.0-12.0) sec INR (<1.2) APTT (22.0-30.0) sec Sodium (137-145) mmol/L Potassium (3.5-5.1) mmol/L Chloride (98-107) mmol/L Carbon Dioxide (22-30) mmol/L Anion Gap mmol/L BUN (7-17) mg/dL Creatinine (0.52-1.04) mg/dL Est GFR (CKD-EPI)AfAm (>60 ml/min/1.73 sqM) Est GFR (CKD-EPI)NonAf (>60 ml/min/1.73 sqM) Glucose (74-99) mg/dL Lactic Ac Sepsis Rflx Plasma Lactic Acid [place] 1.9 (0.7-2.0) mmol/L Calcium (8.4-10.2) mg/dL Total Bilirubin (0.2-1.3) mg/dL AST (14-36) U/L ALT (4-34) U/L Alkaline Phosphatase (38-126) U/L Total Protein (6.3-8.2) g/dL Albumin (3.5-5.0) g/dL Amylase (30-110) U/L Lipase (23-300) U/L Urine Color Urine Appearance (Clear) Urine pH (5.0-8.0) Ur Specific [place] (1.001-1.035) Urine Protein (Negative) Urine Glucose (UA) (Negative) Urine Ketones (Negative) Urine Blood (Negative) Urine Nitrite (Negative) Urine Bilirubin (Negative) Urine Urobilinogen (<2.0) mg/dL Ur Leukocyte Esterase (Negative) Disposition <Robin Aguirre - Last Filed: 05/11/21 21:29> Is patient prescribed a controlled substance at d/c from ED?: No <Sander Mendez - Last Filed: 05/12/21 02:06> Clinical Impression: Ovarian cyst, Hypertension Disposition: HOME SELF-CARE Condition: Good Instructions (If sedation given, give patient instructions): Ovarian Cyst (ED), Hypertension (ED) Referrals: Keagan Garrison MD [Primary Care Provider] - 1-2 days
[2021-05-11] MEDS ORDERED: ONDANSETRON 4 MG/2 ML VIAL IVP STA (21:28)
[2021-05-11] MEDS ORDERED: KETOROLAC 15 MG/ML 1 ML VIAL IVP STA (21:28)
[2021-05-11] MEDS ORDERED: SODIUM CHLORIDE 0.9% 500 ML 500 ML IV STA (21:28)
[2021-05-11] MEDS ORDERED: ACETAMINOPHEN TAB 325 MG TAB PO STA (22:17)
[2021-05-11 22:34] LABS: Appearance,Urine Clear (Clear); Basophils # (A) 0.1 k/uL (0-0.2); Basophils % (A) 1 %; Bilirubin,Urine Negative (Negative); Blood,Urine Negative (Negative); Color,Urine Yellow; Eosinophils # (A) 0.2 k/uL (0-0.7); Eosinophils % (A) 1 %; Glucose,Urine (UA) Negative (Negative); HCT 43.5 % (34.0-46.0); HGB 13.9 gm/dL (11.4-16.0); Ketones,Urine Negative (Negative); Leukocyte Esterase,Urine Negative (Negative); Lymphocytes # (A) 2.3 k/uL (1.0-4.8); Lymphocytes % (A) 21 %; MCH 26.7 pg (25.0-35.0); MCV 83.6 fL (80.0-100.0); Mean Platelet Volume 7.8; Monocytes # (A) 0.6 k/uL (0-1.0); Monocytes % (A) 5 %; Neutrophils # (A) 7.8 k/uL (1.3-7.7); Neutrophils % (A) 70 %; Nitrite,Urine Negative (Negative); PH, Urine 6.5 (5.0-8.0); Platelet Count 249 k/uL (150-450); Protein,Urine Negative (Negative); RDW 14.3 % (11.5-15.5); Specific Gravity,Urine 1.014 (1.001-1.035); Urobilinogen,Urine <2.0 mg/dL (<2.0); WBC 11.1 k/uL (3.8-10.6)
--- NOTE | 2021-05-11 22:38 | XR ---
EXAMINATION TYPE: XR KUB DATE OF EXAM: 05/11/2021 COMPARISON: NONE HISTORY: Abdominal pain TECHNIQUE: 2 views FINDINGS: 2 views upright show no sign of intestinal obstruction or pneumoperitoneum. Fecal pattern i s normal. There are clips from cholecystectomy. Lung bases are clear. There are no pathologic calcifi cations over the kidneys. IMPRESSION: Nonacute abdomen.
[2021-05-11 22:45] LABS: Partial Thromboplastin Time 22.5 sec (22.0-30.0); Prothrombin Time 10.4 sec (9.0-12.0)
[2021-05-11 23:05] LABS: ALT 38 U/L (4-34); AST 59 U/L (14-36); African American GFR (CKD) >90 (>60 ml/min/1.73 sqM); Albumin 4.3 g/dL (3.5-5.0); Alkaline Phosphatase 68 U/L (38-126); Amylase 43 U/L (30-110); Anion Gap 11 mmol/L; Blood Urea Nitrogen 9 mg/dL (7-17); Calcium 9.6 mg/dL (8.4-10.2); Carbon Dioxide 27 mmol/L (22-30); Chloride 99 mmol/L (98-107); Glucose 173 mg/dL (74-99); Lipase 192 U/L (23-300); Non-African American GFR(CKD) >90 (>60 ml/min/1.73 sqM); Sodium 137 mmol/L (137-145); Total Bilirubin 0.5 mg/dL (0.2-1.3); Total Protein 7.7 g/dL (6.3-8.2)
--- NOTE | 2021-05-12 01:59 | CT ---
EXAMINATION TYPE: CT abdomen pelvis wo con DATE OF EXAM: 05/12/2021 COMPARISON: 12/01/2019 HISTORY: RLQ pain CT DLP: 2624 mGycm Automated exposure control for dose reduction was used. Images obtained from the diaphragm to the floor the pelvis with no contrast. Lung bases are clear. There is no pleural effusion. Heart size is normal. There is fatty infiltration of the liver. Liver measures 24.5 cm in length. There are clips from chol ecystectomy. The bile ducts are not dilated. Spleen is intact. There is no evidence of pancreatic mas s. Stomach is intact. There is no adrenal mass. Kidneys show normal size and contour. There is no hydronephrosis. Bladder d istends smoothly. Uterus is anteverted. There is no free fluid in the pelvis. Lumbar vertebra have normal spacing and alignment. Posterior elements are intact. Bony pelvis is inta ct. Hip joints are intact. There is no mesenteric edema. There is no ascites or free air. There is no evidence of a bowel obstru ction. Appendix is lateral and extends up to the liver edge. Appendix has normal size and contour. There is a large cystic midline pelvic mass. This appears to have thin wall and measures 18 x 19.5 x 14 cm. This appears to be contiguous with the right ovary. There are clips from tubal ligation. IMPRESSION: Fatty infiltration of the liver. Hepatomegaly. Large cystic pelvic mass is consistent with ovarian cyst arising from the right ovary. Follow-up linda mmended. Over an cyst significantly increased compared to old exam. Previous exam measures 11.5 x 8 c m and no measures 19.4 x 14 cm.
[2021-05-12 02:38] VITALS: BP 158/98; PULSE 95; RESP 20; TEMP 98.9
== END 2021-05-12 02:39 | disposition home or self-care (01) ==
LOC: EC 18:35
DX: N83.201 Unspecified ovarian cyst, right side (principal); I10 Essential (primary) hypertension; F41.9 Anxiety disorder, unspecified; F32.9 Major depressive disorder, single episode, unspecified; Z98.51 Tubal ligation status; Z90.49 Acquired absence of other specified parts of digestive tract
CPT/HCPCS: 99284; 96374; 96375; 36415 ×2; 80053; 82150; 83605 ×2; 83690; 85025; 85610; 85730; 81003; 74018; 74176; J2405; J1885

== ENCOUNTER → 2021-06-09 | Outpatient (CLI) | payer BC ==
[2021-06-09 20:24] LABS: Amorphous Sediment,Urine Rare /hpf; Appearance,Urine Cloudy (Clear); Bacteria,Urine Occasional /hpf; Bilirubin,Urine Negative (Negative); Blood,Urine Negative (Negative); Color,Urine Yellow; Glucose,Urine (UA) Negative (Negative); Ketones,Urine Negative (Negative); Leukocyte Esterase,Urine Negative (Negative); Mucus,Urine Rare /hpf; Nitrite,Urine Negative (Negative); PH, Urine 6.5 (5.0-8.0); Protein,Urine Negative (Negative); Specific Gravity,Urine 1.021 (1.001-1.035); Squamous Epithelial Cell,Urine 13 /hpf (0-4); Urobilinogen,Urine <2.0 mg/dL (<2.0); WBC,Urine 3 /hpf (0-5)
[2021-06-09 23:16] LABS: HCT 41.9 % (37.2-46.3); MCH 26.3 pg (27.0-32.0); MCV 84.6 fL (80.0-97.0); Mean Platelet Volume 10.5 fL (9.5-12.2); Platelet Count 294 X 10*3/uL (140-440); RBC 4.95 X 10*6/uL (4.10-5.20); WBC 9.61 X 10*3/uL (4.50-10.00)
[2021-06-10 01:36] LABS: ALT 36 U/L (8-44); AST 40 U/L (13-35); African American GFR (CKD) 125.6 (60.0-200.0); Albumin 4.2 g/dL (3.8-4.9); Alkaline Phosphatase 67 U/L (41-126); BUN/Creat Ratio 13.57 Ratio (12.00-20.00); Blood Urea Nitrogen 9.5 mg/dL (9.0-27.0); Calcium 9.5 mg/dL (8.7-10.3); Cancer Antigen 125 36.1 U/mL (0.0-30.1); Carbon Dioxide 25.2 mmol/L (20.0-27.5); Chloride 99 mmol/L (96-109); Globulin 2.8 g/dL (1.6-3.3); Glucose 135 mg/dL (70-110); Non-African American GFR(CKD) 108.4 (60.0-200.0); Potassium 3.8 mmol/L (3.5-5.5); Sodium 139 mmol/L (135-145)
[2021-06-10 02:26] LABS: HCG,Quantitative Serum <0.1 (0.0-6.0)
--- NOTE | 2021-06-10 09:45 | XR ---
EXAMINATION TYPE: XR chest 2V DATE OF EXAM: 06/09/2021 COMPARISON: Chest x-ray May 01, 2019 HISTORY: History of recent bronchitis, presurgical study. TECHNIQUE: Frontal and lateral views of the chest are obtained. FINDINGS: There is no new suspicious focal air space opacity, pleural effusion, or pneumothorax seen . The cardiac silhouette size remains within normal limits. The osseous structures are intact. IMPRESSION: No acute process. No significant change from prior.
== END | disposition home or self-care (01) ==
LOC: LABWHC1 15:45
PROVIDERS: ATTEND Obstetrics & Gynecology Gynecologic Oncology
DX: Z01.818 Encounter for other preprocedural examination (principal); R19.00 Intra-abdominal and pelvic swelling, mass and lump, unspecified site; Z87.09 Personal history of other diseases of the respiratory system
CPT/HCPCS: 36415; 71046; 80053; 81001; 82378; 84702; 85027; 86304; 86850; 86900; 86901; 87086

== ENCOUNTER → 2021-09-30 | Outpatient (CLI) | payer BC ==
--- NOTE | 2021-09-30 15:59 | CONS ---
CONSULTATION DATE OF SERVICE: 09/30/2021 This 41-year-old lady has been evaluated in Sleep Center for possible obstructive sleep apnea-hypopnea syndrome. HISTORY OF PRESENT ILLNESS/SLEEP-WAKE EVALUATION: The patient had a sleep study about 10 years ago in another institution and was told that she had obstructive sleep apnea, but because of insurance problems at that time she was not able to get CPAP treatment. At the present time her sleep schedule on weekdays is from midnight until 7:45 a.m. and on weekends from midnight until 8:30 a.m. No problems with falling asleep, although she has a TV set in the bedroom. She sleeps in different positions. She has loud snoring and witnessed episodes of stopped breathing during sleep. Positive history of palpitations, gasping for air, sleeptalking and sweating. She wakes up from sleep up to 4 times, with 3 episodes of nocturia. No history of hypnagogic hallucinations, sleep paralysis or cataplexy. In the morning the patient wakes up tired, has difficulties paying attention, falling asleep during the day, worries about her sleep, has problems with memory, concentration, irritability, depression and anxiety. [place] Sleepiness Scale is significantly increased to 12. The patient may take one nap, late afternoon. PAST MEDICAL HISTORY: Positive for hypertension, sinus problems, cysts in the brain and uterus, headaches, iron deficiency anemia, depression, anxiety. PAST SURGICAL HISTORY: Surgical treatment of cysts of the brain, hysterectomy, appendectomy, tubal ligation, uterus ablation, adenoidectomy, cholecystectomy. MEDICATIONS: 1. Lisinopril 10 mg once a day. 2. Amlodipine 10 mg once a day. 3. Loratadine on a p.r.n. basis for allergies. SOCIAL HISTORY: Negative for smoking. Alcohol consumption occasional. FAMILY HISTORY: Sleep apnea, heart problems, cancer, mental illness. REVIEW OF SYSTEMS: Multiple awakenings from sleep, sleepiness during the day, snoring. No fevers. No double vision. No recent chest pain. No shortness of breath. No abdominal pain. No bleeding episodes. No blood in the urine. No seizure episodes. PHYSICAL EXAMINATION: GENERAL: Pleasant lady without distress. VITAL SIGNS: BP 171/100 on the right arm, 166/94 repeated. HR 96, RR 18, height 5 feet 6 inches, weight 367.8, body mass index 59.2, temperature 97.4, oxygen saturation at room air 95%. HEENT: PERRLA, EOMI, evaluation of oropharynx showed tongue protrudes midline. Extremely low position of soft palate; Mallampati IV. NECK: Supple, no JVD. Thyroid is not palpable. Extremely wide neck; 20 inches in circumference. LUNGS: Clear to percussion and to auscultation. Good air exchange. No wheezing or rhonchi. HEART: S1, S2 regular. No murmurs, gallops, or rubs. ABDOMEN: Obese. EXTREMITIES: No clubbing or cyanosis. SLIP COVER MAKER: Awake, alert, and oriented X3. Cranial nerves 2 to 7 intact. There is no fasciculation or atrophy. noted. No focal deficits observed. IMPRESSION: 1. Loud snoring, witnessed episodes of stopped breathing during sleep, history of obstructive sleep apnea in the past, extremely low position of soft palate, Mallampati IV, extremely wide neck, 20 inches in circumference, sleepiness, [place] Sleepiness Scale increased to 12; obstructive sleep apnea-hypopnea syndrome. 2. Morbid obesity; body mass index 59.2. 3. Hypertension. 4. Sinus problems. 5. History of colloid cyst of the brain, status post surgical treatment. 6. History of ovarian cyst. 7. Headaches. 8. History of iron deficiency anemia. 9. History of depression. 10.History of anxiety. 11.Status post tubal ligation. 12.Status post adenoidectomy. 13.Status post cholecystectomy. 14.Status post hysterectomy. 15.Status post uterine ablation. PLAN: 1. Polysomnography for evaluation of patient's breathing during sleep. 2. CPAP/BiPAP titration if sleep study confirms obstructive sleep apnea-hypopnea syndrome. 3. Preferable position during sleep on the side. 4. No driving if patient feels any sleepiness. 5. I will see patient for follow up visit to explain results of testing and following plan. Thank you very much for referring this patient for consultation. Sincerely, Shadi Padilla MD, PhD, FAASM Diplomat of [place] [employer] Sleep Medicine Board of [place] [employer] [facility] [place] MMODL / IJN: [id number] /
== END ==
LOC: SLEEP 14:27
PROVIDERS: ATTEND Internal Medicine
DX: G47.33 Obstructive sleep apnea (adult) (pediatric) (principal); E66.01 Morbid (severe) obesity due to excess calories; Z68.43 Body mass index [BMI] 50.0-59.9, adult; I10 Essential (primary) hypertension; J34.9 Unspecified disorder of nose and nasal sinuses; F41.9 Anxiety disorder, unspecified; Z86.011 Personal history of benign neoplasm of the brain; Z87.42 Personal history of other diseases of the female genital tract; Z98.890 Other specified postprocedural states; F32.A Depression, unspecified; Z98.51 Tubal ligation status; Z90.09 Acquired absence of other part of head and neck; Z90.49 Acquired absence of other specified parts of digestive tract; Z90.711 Acquired absence of uterus with remaining cervical stump
CPT/HCPCS: 99211

== ENCOUNTER → 2021-12-07 | Outpatient (CLI) | payer BC ==
--- NOTE | 2021-12-09 06:40 | MR ---
EXAMINATION TYPE: MR brain wo/w con DATE OF EXAM: 12/07/2021 COMPARISON: Outside MRI brain September 05, 2020. HISTORY: Cerebral cysts, colloid cyst of the third ventricle TECHNIQUE: Multiplanar, multisequence images of the brain and brainstem is performed without and with IV contras t, utilizing 15 mL intravenous Gadavist . FINDINGS: Diffusion weighted images demonstrate no evidence of a recent infarct or other diffusion ab normality. There is no extra-axial fluid collection or significant white matter signal abnormality. The ventricular system and cisternal spaces are stable in size and appearance. The brain volume is age appropriate. Tiny septum pellucidum vergae remains present and stable. Some susceptibility artifa ct redemonstrated along the right frontal lobe extending towards lateral ventricle similar in appeara nce to prior study extending from more superior right-sided frontal marco hole. Midline structures demonstrate normal morphology. There is better visualized roughly 7 to 8 mm pinea l gland cyst axial image 16 on current study The craniocervical junction appears within normal limits . Post contrast images demonstrate no abnormal enhancement. The dural venous sinuses appear patent. The visualized sinuses are clear and the globes are intact. IMPRESSION: Evidence of prior ventriculostomy shunt catheter redemonstrated. 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 No hydrocephalus. No enhancing masses.
== END | disposition home or self-care (01) ==
LOC: RADMRIMAIN 09:31
PROVIDERS: ATTEND Registered Nurse
DX: G93.0 Cerebral cysts (principal)
CPT/HCPCS: 70553; A9585

== ENCOUNTER → 2022-03-17 | Outpatient (CLI) | payer BC ==
--- NOTE | 2022-03-17 13:40 | P.PN ---
Subjective DATE: 03/17/2022 FOLLOW UP VISIT. Patient with obstructive sleep apnea hypopnea syndrome return to sleep center for follow-up visit. Recently patient had sleep study which documented obstructive sleep apnea hypopnea syndrome. Patient was initiated on PAP therapy and today is first visit after treatment was started. I discussed is also sleep studies with patient in details. Patient was able to use PAP equipment every night for the whole night, but she feels some discomfort during the sleep because she used to sleep on the belly po sition before she started to use CPAP equipment.. [place] sleepiness scale is high 19. I checked information from PAP unit. PAP unit pressure 7-15, average 12.0 cm H2O. Usage is 77 % for more then 4 hours, average 4.5 hours per night. Leak is 10.1 l/m, which is in acceptable range. Apnea Hypopnea Index is 0.6, which is normal. MEDICATIONS:1. Lisinopril 10 mg once a day 2. Amlodipine 10 mg once a day 3. Loratidine as needed for ALLERGIES During physical exam: GENERAL: A pleasant patient without any distress. VITAL SIGNS: BP 185/108, HR 108, RR 18, weight 364, temperature 98.6, oxygen saturation at room air 97%. HEENT: PERRLA, EOMI.low position of soft palate, Mallapati 4 . NECK: Supple. No JVD. LUNGS: Clear to percussion and to auscultation. Good air exchange. No wheezing or rhonchi. HEART: S1, S2 regular. ABDOMEN: Soft and nontender. Obese EXTREMITIES: No clubbing or cyanosis. WOODEN BOAT BUILDER: Awake, alert, and oriented x3. No focal deficit. Impressions: 1. Obstructive sleep apnea-hypopnea syndrome. Patient demonstrated good compliance with treatment, benefiting from treatment. Patient experiencing discomfort while sleeping on the back position, used to sleep on the belly. 2. Obesity. 3. Hypertension. 4. History of sinuses problems. 5. History of cyst of the brain status post surgical treatment. 6. History of ovarian cyst. 7. History of iron deficiency anemia. 8. History of depression. 9. History of anxiety 10 status post tubal ligation, adenoidectomy, cholecystectomy, hysterectomy, uterine ablation. Plan: 1. Continue using PAP equipment every night for the whole night.Prescription for different type of fullface mask dreamwhere medium-size. Patient should be able to sleep with this mask on the belly position. 2. To change air filter at least 1-2 times per month. 3. PAP unit should stay lower then position of the head. 4. Advised patient to remove all remaining water from humidifier canister daily and make it dry after each usage. Refill canister with fresh distilled water before each usage. 5. Sleep hygiene with regular time in bed for at least 8 hours. 6. Precautions related to driving. No driving if feel any sleepiness. 7. I will maintain prescription for PAP supplies including mask, tube, filters. 8. Follow up visit in 6 months or earlier if patient has any problems. 9. Watching and losing weight. Thank you very much for allowing me to participate in the management of your patient. Shadi Padilla MD, PhD, FAASM. Diplomat of [place] [employer], Sleep Medicine Board by [place] [employer] Senior Engineering Specialist of [facility] [place]
== END ==
LOC: SLEEP 13:02
PROVIDERS: ATTEND Internal Medicine
DX: G47.33 Obstructive sleep apnea (adult) (pediatric) (principal); E66.9 Obesity, unspecified; I10 Essential (primary) hypertension; Z87.09 Personal history of other diseases of the respiratory system; Z86.69 Personal history of other diseases of the nervous system and sense organs; F41.9 Anxiety disorder, unspecified; Z87.42 Personal history of other diseases of the female genital tract; Z86.2 Personal history of diseases of the blood and blood-forming organs and certain disorders involving the immune mechanism; F32.A Depression, unspecified; Z98.51 Tubal ligation status; Z98.890 Other specified postprocedural states; Z90.49 Acquired absence of other specified parts of digestive tract; Z90.09 Acquired absence of other part of head and neck; Z90.710 Acquired absence of both cervix and uterus; Z99.89 Dependence on other enabling machines and devices
CPT/HCPCS: 99212

== ENCOUNTER → 2022-06-23 | Outpatient (CLI) | payer BC ==
--- NOTE | 2022-06-24 08:54 | MM ---
Reason for Exam: Screening (asymptomatic). Patient History: Menarche at age 13. Patient has no children. Hysterectomy at age 41. Patient used Hormonal Contraceptives for 10 years. Maternal grandmother had breast cancer, age 60. Maternal cousin had breast cancer, age 25. Risk Values: [place] 5 year model risk: 0.7%. NCI Lifetime model risk: 11.0%. Prior Study Comparison: 07/05/2018 Bilateral Diagnostic Mammogram, [facility]. 10/04/2019 Right Diagnostic Mammogram, [facility]. Tissue Density: There are scattered fibroglandular densities. Findings: Analyzed By CAD. There is no suspicious group of microcalcifications in either breast. Benign-appearing calcifications within both breasts. Asymmetry demonstrated within the outer right breast only on the CC view at posterior depth. Overall Assessment: Incomplete: need additional imaging evaluation, BI-RAD 0 Management: Diagnostic Mammogram of the right breast. A clinical breast exam by your physician is recommended on an annual basis and results should be correlated with mammographic findings. [facility] will attempt to contact patient to return for supplemental views and ultrasound if indicated. Electronically signed and approved by: Rob Blankenship D.O.
== END | disposition home or self-care (01) ==
LOC: RADMAMWWP 15:00
PROVIDERS: ATTEND Obstetrics & Gynecology Obstetrics
DX: Z12.31 Encounter for screening mammogram for malignant neoplasm of breast (principal); Z80.3 Family history of malignant neoplasm of breast
CPT/HCPCS: 77067

== ENCOUNTER → 2022-06-29 | Outpatient (CLI) | payer BC ==
--- NOTE | 2022-06-29 10:42 | MM ---
Reason for Exam: Additional evaluation requested from abnormal screening. Last screening mammogram was performed less than 1 month ago. Patient History: Menarche at age 13. Patient has no children. Hysterectomy at age 41. Patient used Hormonal Contraceptives for 10 years. Maternal grandmother had breast cancer, age 60. Maternal cousin had breast cancer, age 25. Risk Values: Carmella 5 year model risk: 0.7%. NCI Lifetime model risk: 11.0%. Tissue Density: Right: There are scattered fibroglandular densities. Findings: Analyzed By CAD. There is a persistent rounded density with circumscribed margins measuring 0.6 cm in the lower outer quadrant right breast 13 cm from the nipple on the compression view. This is not as well-visualized on the medial lateral view. Additional workup with ultrasound is recommended. Overall Assessment: Incomplete: need additional imaging evaluation, BI-RAD 0 Management: Diagnostic Breast Ultrasound of the right breast. A clinical breast exam by your physician is recommended on an annual basis and results should be correlated with mammographic findings. This exam should not preclude additional follow-up of suspicious palpable abnormalities. Results were given to the patient verbally at the time of exam. Electronically signed and approved by: Liang Padilla D.O. Radiologis
--- NOTE | 2022-06-29 11:48 | USB ---
Reason for Exam: Additional evaluation requested from abnormal screening. Patient History: Menarche at age 13. Patient has no children. Hysterectomy at age 41. Patient used Hormonal Contraceptives for 10 years. Maternal grandmother had breast cancer, age 60. Maternal cousin had breast cancer, age 25. Risk Values: Carmlela 5 year model risk: 0.7%. NCI Lifetime model risk: 11.0%. Technique: Method: Targeted. Prior Study Comparison: 07/05/2018 Bilateral Diagnostic Mammogram, [facility]. 10/04/2019 Right Diagnostic Mammogram, [facility] 06/23/2022 Bilateral MG screening mammo w CAD, [facility]. Findings: The lower outer quadrant of the right breast was scanned. No solid or cystic masses are identified. Abnormality to account for mammographic finding is evident. Short-term follow-up mammogram is recommended. Overall Assessment: Probably benign, BI-RAD 3 Management: Diagnostic Mammogram of the right breast in 6 months. A clinical breast exam by your physician is recommended on an annual basis and results should be correlated with mammographic findings. This exam should not preclude additional follow-up of suspicious palpable abnormalities. ??Results were given to the patient verbally at the time of exam. Electronically signed and approved by: Liang Padilla D.O. Radiologis
== END | disposition home or self-care (01) ==
LOC: RADMAMWWP 10:13
PROVIDERS: ATTEND Obstetrics & Gynecology Obstetrics
DX: R92.8 Other abnormal and inconclusive findings on diagnostic imaging of breast (principal); Z80.3 Family history of malignant neoplasm of breast
CPT/HCPCS: 77061; 77065

== ENCOUNTER → 2022-10-12 | Outpatient (CLI) | payer BC ==
[2022-10-12 23:22] LABS: HCT 43.1 % (37.2-46.3); HGB 13.3 g/dL (12.0-15.0); MCH 26.2 pg (27.0-32.0); MCHC 30.9 g/dL (32.0-37.0); MCV 84.8 fL (80.0-97.0); Mean Platelet Volume 10.7 fL (9.5-12.2); NRBC Per 100 WBC 0 /100 WBCS (0.0-0.0); Platelet Count 285 X 10*3/uL (140-440); RBC 5.08 X 10*6/uL (4.10-5.20); WBC 11.59 X 10*3/uL (4.50-10.00)
[2022-10-12 23:46] LABS: African American GFR (CKD) 107.3 (60.0-200.0); Albumin 4.6 g/dL (3.8-4.9); Albumin/Globulin Ratio 1.55 (1.60-3.17); Anion Gap 14.5 mmol/L (10.00-18.00); Blood Urea Nitrogen 11.1 mg/dL (9.0-27.0); C Reactive Protein 2.3 mg/dL (0.00-0.80); Calcium 9.8 mg/dL (8.7-10.3); Carbon Dioxide 25.5 mmol/L (20.0-27.5); Non-African American GFR(CKD) 92.6 (60.0-200.0); Potassium 4.4 mmol/L (3.5-5.5); Total Bilirubin 0.4 mg/dL (0.30-1.20); Total Protein 7.5 g/dL (6.2-8.2)
[2022-10-13 00:02] LABS: Erythrocyte Sedimentation Rate 32 mm/Hr (0-20)
[2022-10-13 04:24] LABS: Gliadin AB IgA, Deaminated NEGATIVE (NEGATIVE); Gliadin AB IgA, Unit 0.3 U/mL; Gliadin AB IgG, Deaminated NEGATIVE (NEGATIVE); Gliadin AB IgG, Unit <0.4 U/mL
== END | disposition home or self-care (01) ==
LOC: LABWHC1 14:01
PROVIDERS: ATTEND Nurse Practitioner Family
DX: K52.9 Noninfective gastroenteritis and colitis, unspecified (principal)
CPT/HCPCS: 36415; 80053; 83516; 85027; 85652; 86140

== ENCOUNTER 2022-11-25 07:36 | Day surgery (SDC) | payer BC ==
[~2022-11-25 07:36] MED LIST changes: -ACETAMINOPHEN IV (For NPO) 1,000 MG in EMPTY BAG 1 BAG IVPB ONE; -DEXAMETHASONE SOD PHOSPHATE 10 MG/ML 1 ML VIAL IV ONE; +LIDOCAINE 1% (10MG/ML) FOR IV START INTRADERMA PRN; -LIDOCAINE 1% 20 ML VIAL (10MG/ML) FOR IV START INTRADERMA PRN; -MIDAZOLAM 2 MG/2 ML VIAL IV PRN; -ONDANSETRON 4 MG/2 ML VIAL IVP ONE; -Pre Op ABX Message 1 EACH MISC MISCELLANE ONE; -SCOPOLAMINE 1.5MG/72HR PATCH TRANSDERM ONE
[2022-11-25 08:27] LABS: Glucose,Whole Blood 154 mg/dL (70-110)
[2022-11-25 08:30] VITALS: TEMP 97
[2022-11-25] MEDS ORDERED: LIDOCAINE 2% INJ 20 MG/ML (2 ML VIAL) ONE (08:42)
[2022-11-25] MEDS ORDERED: PROPOFOL 10 MG/ML 20 ML VIAL IV ONE (08:42)
--- NOTE | 2022-11-25 09:06 | P.PCN ---
Date of Procedure: 11/25/22 Procedure(s) Performed: BRIEF HISTORY: Patient is a in [id number] pleasant white female scheduled for an elective colonoscopy as a part of evaluation of abdominal pain and chronic diarrhea of several years duration. PROCEDURE PERFORMED: Colonoscopy with random biopsies. PREOPERATIVE DIAGNOSIS: Abdominal pain and chronic diarrhea IV sedation per Anesthesia. PROCEDURE: After informed consent was obtained, the patient, was brought into the endoscopy unit. IV sedation was administered by Anesthesia under continuous monitoring. Digital rectal examination was normal. Initially the Olympus CF-160 flexible video colonoscope was then inserted in the rectum, gradually advanced into the cecum without any difficulty. Careful examination was performed as the scope was gradually being withdrawn. Ileocecal valve and the appendiceal orifice were visualized and appeared normal. Prep was excellent. Mucosa of the cecum, ascending colon, transverse colon, descending colon, sigmoid colon, and rectum appeared normal. Random biopsies were done from ascending and descending colon (/collagenous colitis. Retroflexion was performed in the rectum and no lesions were seen. The patient tolerated the procedure well. IMPRESSION: Normal-appearing colon from rectum to cecum with no evidence of colorectal neoplasia. . RECOMMENDATIONS: Findings of this examination were discussed with the patient as well as a family. She was advised to follow with the biopsy results. She'll be seen in office in 3-4 weeks..
[2022-11-25 09:14] VITALS: RESP 18
[2022-11-25 09:40] VITALS: BP 109/78; PULSE 75
== END 2022-11-25 10:22 | disposition home or self-care (01) ==
LOC: ORWHC2ENDO 07:36
PROVIDERS: ATTEND Internal Medicine Gastroenterology
DX: K52.9 Noninfective gastroenteritis and colitis, unspecified (principal); I10 Essential (primary) hypertension; J45.909 Unspecified asthma, uncomplicated; G47.33 Obstructive sleep apnea (adult) (pediatric); E11.9 Type 2 diabetes mellitus without complications; F41.8 Other specified anxiety disorders; Z79.899 Other long term (current) drug therapy; Z98.51 Tubal ligation status; Z98.890 Other specified postprocedural states
CPT/HCPCS: 88305; 45380; J2704; J2001

== ENCOUNTER → 2023-07-31 | Outpatient (CLI) | payer BC ==
--- NOTE | 2023-08-02 21:39 | MR ---
EXAMINATION TYPE: MR brain wo/w con DATE OF EXAM: 07/31/2023 6:54 PM CLINICAL INDICATION:Female, 43 years old with history of G93.0 CEREBRAL CYSTS; PHH, Cerebral cysts, M alton issues, Hx brain surgery 11/2018 COMPARISON: 12/07/2021 TECHNIQUE: Multi planar, multi sequence imaging was performed through the brain including: T1, T2, In version recovery, susceptibility weighted imaging and gradient echo imaging and Diffusion weighted im aging. The patient was then given intravenous contrast and multi planar, T1 fat-saturation images wer e obtained. IV Contrast: 13.5 cc Gadavist FINDINGS: There is better visualized roughly 7 x 5 mm nonenhancing pineal gland cyst surgical changes to the sk ull. Susceptibility blooming artifact is unchanged from prior extending from marco hole down towards t he right lateral ventricle. Ventricular system is within normal limits for size. The gilliam-white junct ions, ventricular system, basal cisterns appear unremarkable. Diffusion-weighted imaging shows no ev idence of restricted diffusion to suggest acute/subacute infarct. Intracranial arterial flow voids ar e maintained. Midline structures show no abnormality. The susceptibility weighted images do not revea l any evidence for micro-hemorrhage. After administration of gadolinium, no abnormal enhancement is s een. The bone marrow signal is within normal limits. Paranasal sinuses and mastoid air cells: No significant paranasal sinus disease. Visualized orbits: Orbital contents are intact. IMPRESSION: 1. 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 No evidence for hydrocephalus. 2. No evidence of intra-axial mass, acute/subacute infarct, or abnormal enhancement. 3. Stable right frontal lobe susceptibility artifact from prior intervention.
== END | disposition home or self-care (01) ==
LOC: RADMRIMAIN 18:01
PROVIDERS: ATTEND Neurological Surgery
DX: G93.0 Cerebral cysts (principal)
CPT/HCPCS: 70553; A9585

== ENCOUNTER → 2023-08-17 | Outpatient (CLI) | payer BC ==
--- NOTE | 2023-08-17 11:21 | MM ---
Reason for Exam: Screening (asymptomatic). Last mammogram was performed 1 year(s) and 2 month(s) ago. Patient History: Menarche at age 13. Patient has no children. Hysterectomy at age 41. Patient used Hormonal Contraceptives for 10 years. Maternal grandmother had breast cancer, age 60. Maternal cousin had breast cancer, age 25. Risk Values: Carmella 5 year model risk: 0.7%. NCI Lifetime model risk: 10.9%. Prior Study Comparison: 10/04/2019 Right Diagnostic Mammogram, [facility]. 06/23/2022 Bilateral MG screening mammo w CAD, [facility]. 06/29/2022 Right MG 3D work up w/cad RT, [facility]. Tissue Density: The breast tissue is almost entirely fat. Findings: Analyzed By CAD. There is no suspicious group of microcalcifications or new suspicious mass. Benign-appearing calcifications bilaterally. Overall Assessment: Benign, BI-RAD 2 Management: Screening Mammogram of both breasts in [address] [facility] will attempt to contact patient to return for supplemental views and ultrasound if indicated. Patient should continue monthly self-breast exams. A clinical breast exam by your physician is recommended on an annual basis. This exam should not preclude additional follow-up of suspicious palpable abnormalities. Note on Carmella scores and lifetime risk: 1. A Carmella score greater than 3% is considered moderate risk. If this is the case, consider specialist referral to assess eligibility for a risk reducing agent. 2. If overall lifetime risk for the development of breast cancer is 20% or higher, the patient may qualify for future screening with alternating mammogram and breast MRI. Electronically signed and approved by: Rodolfo Avendano DO
== END | disposition home or self-care (01) ==
LOC: RADMAMWWP 10:50
PROVIDERS: ATTEND Family Medicine
DX: Z12.31 Encounter for screening mammogram for malignant neoplasm of breast (principal); Z80.3 Family history of malignant neoplasm of breast
CPT/HCPCS: 77067

== ENCOUNTER 2024-07-11 15:03 | Emergency (ER) | payer BC ==
[2024-07-11 15:20] VITALS: TEMP 98.6
[2024-07-11 15:53] LABS: Basophils % (A) 0 %; Eosinophils # (A) 0.2 k/uL (0-0.7); Eosinophils % (A) 2 %; HCT 40.4 % (34.0-46.0); HGB 12.9 gm/dL (11.4-16.0); Lymphocytes # (A) 1.7 k/uL (1.0-4.8); Lymphocytes % (A) 13 %; MCHC 31.9 g/dL (31.0-37.0); MCV 81.6 fL (80.0-100.0); Mean Platelet Volume 7.8; Monocytes # (A) 0.6 k/uL (0-1.0); Monocytes % (A) 4 %; Neutrophils # (A) 10.2 k/uL (1.3-7.7); Neutrophils % (A) 80 %; Platelet Count 288 k/uL (150-450); RBC 4.96 m/uL (3.80-5.40); RDW 14.8 % (11.5-15.5); WBC 12.8 k/uL (3.8-10.6)
[2024-07-11 15:56] LABS: Partial Thromboplastin Time 22.3 sec (22.0-30.0); Prothrombin Time 10.7 sec (10.0-12.5)
[2024-07-11 16:14] LABS: ALT 22 U/L (4-34); African American GFR (CKD) >90 (>60 ml/min/1.73 sqM); Albumin 4.2 g/dL (3.5-5.0); Anion Gap 11 mmol/L; Blood Urea Nitrogen 7 mg/dL (7-17); Carbon Dioxide 23 mmol/L (22-30); Chloride 106 mmol/L (98-107); Glucose 124 mg/dL (74-99); Non-African American GFR(CKD) >90 (>60 ml/min/1.73 sqM); Sodium 140 mmol/L (137-145); Total Bilirubin 0.9 mg/dL (0.2-1.3)
[2024-07-11 16:16] LABS: AST 34 U/L (14-36); Alkaline Phosphatase 46 U/L (38-126); Magnesium 1.6 mg/dL (1.6-2.3); Potassium 4.7 mmol/L (3.5-5.1); Total Protein 7.4 g/dL (6.3-8.2)
[2024-07-11 17:35] VITALS: RESP 18
[2024-07-11] MEDS: ONDANSETRON 4 MG/2 ML VIAL IVP STA (17:38)
--- NOTE | 2024-07-11 18:23 | ED ---
General Adult HPI - General Chief complaint: Chest Pain Stated complaint: NVD, chest pain Time Seen by Provider: 07/11/24 17:30 Source: patient Mode of arrival: wheelchair Limitations: no limitations - History of Present Illness Initial comments: 44-year-old female presents emergency department reporting generalized abdominal pain, nausea vomiting. She is concerned that her symptoms may be due to medication side effect. Patient is on Wegovy. States that her dose was just recently increased. She usually gets nausea and vomiting 1 to 2 days after the injection but states that her symptoms have been persistent for several days this time. She has had numerous episodes of vomiting. Denies bilious or bloody vomiting. Also admits to some intermittent constipation with diarrhea. Denies any black or bloody stools. She denies any urinary complaints to include dysuria, hematuria or difficulty voiding. No concern for as she has had a hysterectomy. No other alleviating, precipitating modifying factors - Related Data Home Medications Medication Instructions Recorded Confirmed Loratadine [Claritin] 10 mg PO DAILY PRN 12/08/17 11/25/22 Fluticasone Nasal [place] [Flonase 1 spray EA NOSTRIL DAILY PRN 05/11/21 11/25/22 Nasal [place]] Dicyclomine [Bentyl] 10 mg PO TID PRN 11/24/22 11/25/22 Ibuprofen [Motrin Ib] 200 mg PO Q6HR PRN 11/24/22 11/25/22 PARoxetine [Paxil] 20 mg PO HS 11/24/22 11/25/22 Semaglutide [Ozempic] 0.25 mg SQ PEPE 11/24/22 11/25/22 Zolpidem Tartrate [Ambien] 5 mg PO HS PRN 11/24/22 11/25/22 amLODIPine 10 mg PO HS 11/24/22 11/25/22 lisinopriL [Zestril] 20 mg PO HS 11/24/22 11/25/22 metFORMIN HCL ER [Glucophage XR] 500 mg PO W/SUPPER 11/24/22 11/25/22 Previous Rx's Medication Instructions Recorded Ondansetron Odt [Zofran Odt] 4 mg PO Q8HR PRN #20 tab 07/11/24 Allergies Allergy/AdvReac Type Severity Reaction Status Date / Time No Known Allergies Allergy Verified 07/11/24 15:13 Review of Systems ROS Statement: Those systems with pertinent positive or pertinent negative responses have been documented in the HPI. ROS Other: All systems not noted in ROS Statement are negative. Past Medical History Past Medical History: Diabetes Mellitus, Hypertension, Memory Impairment, Sleep Apnea/CPAP/BIPAP, Syncope Additional Past Medical History / Comment(s): IBS, NIDDM type II, seasonal allergies. Has had heart murmur since . Occasional heart paliptations. 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 CPAP used. History of Any Multi-Drug Resistant Organisms: None Reported Past Surgical History: Adenoidectomy, Appendectomy, Cholecystectomy, Hysterectomy, Tubal Ligation Additional Past Surgical History / Comment(s): Brain surgery to remove colloid cyst/has grown back. Past Anesthesia/Blood Transfusion Reactions: No Reported Reaction Additional Past Anesthesia/Blood Transfusion Reaction / Comment(s): Pt has never received blood. Past Psychological History: Anxiety, Depression Smoking Status: Never smoker Past Alcohol Use History: None Reported Past Drug Use History: None Reported - Past Family History Father Family Medical History: Myocardial Infarction ([place]) Additional Family Medical History / Comment(s): from [place] at the age of 68yrs. Mother Family Medical History: Congestive Heart Failure (CHF), CVA/TIA, Hyperlipidemia, Hypertension Additional Family Medical History / Comment(s): Mother at 42yrs/cva and fell with head injury Brother(s) Family Medical History: Cancer Additional Family Medical History / Comment(s): , primary site spine General Exam Limitations: no limitations General appearance: alert, in no apparent distress Head exam: Present: atraumatic, normocephalic, normal inspection Eye exam: Present: normal appearance, PERRL, EOMI. Absent: scleral icterus, conjunctival injection, periorbital swelling ENT exam: Present: normal exam, mucous membranes moist Neck exam: Present: normal inspection. Absent: tenderness, meningismus, lymphadenopathy Respiratory exam: Present: normal lung sounds bilaterally. Absent: respiratory distress, wheezes, rales, rhonchi, stridor Cardiovascular Exam: Present: regular rate, normal rhythm, normal heart sounds. Absent: systolic murmur, diastolic murmur, rubs, gallop, clicks GI/Abdominal exam: Present: soft, tenderness (Generalized), normal bowel sounds. Absent: distended, guarding, rebound, rigid Extremities exam: Present: normal inspection, full ROM, normal capillary refill. Absent: tenderness, pedal edema, joint swelling, calf tenderness Back exam: Present: normal inspection Neurological exam: Present: alert, oriented X3, CN II-XII intact Psychiatric exam: Present: normal affect, normal mood Skin exam: Present: warm, dry, intact, normal color. Absent: rash Course Vital Signs 07/11/24 07/11/24 07/11/24 15:15 17:34 21:15 Temperature 98.6 F Pulse Rate 103 H 88 81 Respiratory 20 18 18 Rate Blood Pressure 127/69 113/77 108/74 O2 Sat by Pulse 96 100 100 Oximetry Medical Decision Making - Medical Decision Making Was pt. sent in by a medical professional or institution (, PA, BLANKET WASHER, urgent care, hospital, or usp...) When possible be specific @ -No Did you speak to anyone other than the patient for history (EMS, parent, family, police, friend...)? What history was obtained from this source @ -No Did you review nursing and triage notes (agree or disagree)? Why? @ -I reviewed and agree with nursing and triage notes Were old charts reviewed (outside hosp., previous admission, EMS record, old EKG, old radiological studies, urgent care reports/EKG's, usp records)? Report findings @ -No old charts were reviewed Differential Diagnosis (chest pain, altered mental status, abdominal pain women, abdominal pain men, vaginal bleeding, weakness, fever, dyspnea, syncope, headache, dizziness, GI bleed, back pain, seizure, CVA, palpatations, mental health, musculoskeletal)? @ -Differential Abdominal Pain Women: Appendicitis, Cholecystitis, diverticulosis, ischemic bowel, pancreatitis, hepatitis, UTI, gastroenteritis, AAA, incarcerated hernia, bowel obstruction, constipation, inflammatory bowel, hepatitis, peptic ulcer disease, splenic infarction, perforated viscus, vulvitis, ovarian torsion, PID, kidney stone, placenta abruption, this is not meant to be an all-inclusive list EKG interpreted by me (3pts min.). @ -Yes and demonstrates sinus rhythm with rate of 90. Parable 143. QRS 96. QTc of 422. No acute ST segment elevations or depressions X-rays interpreted by me (1pt min.). @ -Yes which demonstrates mild congestion CT interpreted by me (1pt min.). @ -Yes which demonstrates no acute process U/S interpreted by me (1pt. min.). @ -None done What testing was considered but not performed or refused? (CT, X-rays, U/S, labs)? Why? @ -None What meds were considered but not given or refused? Why? @ -None Did you discuss the management of the patient with other professionals (professionals i.e. , PA, BLANKET WASHER, lab, RT, psych nurse, social work manager, educational coordinator, teacher, chief credit officer, case hardener)? Give summary @ -No Was smoking cessation discussed for >3mins.? @ -No Was critical care preformed (if so, how long)? @ -No Were there social determinants of health that impacted care today? How? (Homelessness, low income, unemployed, alcoholism, drug addiction, transportation, low edu. Level, literacy, decrease access to med. care, snf, rehab)? @ -No Was there de-escalation of care discussed even if they declined (Discuss DNR or withdrawal of care, Hospice)? DNR status @ -No What co-morbidities impacted this encounter? (DM, HTN, Smoking, COPD, CAD, Cancer, CVA, ARF, Chemo, Hep., AIDS, mental health diagnosis, sleep apnea, morb id obesity)? @ -Obesity Was patient admitted / discharged? Hospital course, mention meds given and route, prescriptions, significant lab abnormalities, going to OR and other pertinent info. @ -Upon arrival patient seen and evaluated in hallway 22. Thorough history and physical exam was performed. Patient placed on continuous pulse ox and cardiac monitoring. Twelve-lead EKG is obtained as she is reporting chest pain. Laboratory studies are conducted. Patient does go for CT. She does have improvement in her nausea with the Zofran. At this time patient will be given Zofran to take at home as needed for nausea. Recommended decreasing dose of Wegovy or discontinuing drug entirely at this time. She will follow-up with her primary care doctor to discuss this. Return to the emergency room for any new or worsening symptoms. Patient agreeable plan was discharged in stable condition Undiagnosed new problem with uncertain prognosis? @ -No Drug Therapy requiring intensive monitoring for toxicity (Heparin, Nitro, Insulin, Cardizem)? @ -No Were any procedures done? @ -No Diagnosis/symptom? @ -Acute nausea vomiting, acute abdominal pain, possible medication side effect Acute, or Chronic, or Acute on Chronic? @ -Acute Uncomplicated (without systemic symptoms) or Complicated (systemic symptoms)? @ -Complicated Side effects of treatment? @ -No Exacerbation, Progression, or Severe Exacerbation? @ -No Poses a threat to life or bodily function? How? (Chest pain, [place], [place], pneumonia, PE, COPD, DKA, ARF, appy, cholecystitis, CVA, Diverticulitis, Homicidal, Suicidal, threat to staff... and all critical care pts) @ -No - Lab Data Result diagrams: 07/11/24 15:39 07/11/24 15:39 Lab Results 07/11/24 07/11/24 07/11/24 Range/Units 15:39 15:39 15:39 WBC 12.8 H (3.8-10.6) k/uL RBC 4.96 (3.80-5.40) m/uL Hgb 12.9 (11.4-16.0) gm/dL Hct 40.4 (34.0-46.0) % MCV 81.6 (80.0-100.0) fL MCH 26.0 (25.0-35.0) pg MCHC 31.9 (31.0-37.0) g/dL RDW 14.8 (11.5-15.5) % Plt Count 288 (150-450) k/uL MPV 7.8 Neutrophils % 80 % Lymphocytes % 13 % Monocytes % 4 % Eosinophils % 2 % Basophils % 0 % Neutrophils # 10.2 H (1.3-7.7) k/uL Lymphocytes # 1.7 (1.0-4.8) k/uL Monocytes # 0.6 (0-1.0) k/uL Eosinophils # 0.2 (0-0.7) k/uL Basophils # 0.0 (0-0.2) k/uL PT 10.7 (10.0-12.5) sec INR 1.0 (<1.2) APTT 22.3 (22.0-30.0) sec Sodium 140 (137-145) mmol/L Potassium 4.7 (3.5-5.1) mmol/L Chloride 106 (98-107) mmol/L Carbon Dioxide 23 (22-30) mmol/L Anion Gap 11 mmol/L BUN 7 (7-17) mg/dL Creatinine 0.58 (0.52-1.04) mg/dL Est GFR (CKD-EPI)AfAm >90 (>60 ml/min/1.73 sqM) Est GFR (CKD-EPI)NonAf >90 (>60 ml/min/1.73 sqM) Glucose 124 H (74-99) mg/dL Calcium 9.0 (8.4-10.2) mg/dL Magnesium 1.6 (1.6-2.3) mg/dL Total Bilirubin 0.9 (0.2-1.3) mg/dL AST 34 (14-36) U/L ALT 22 (4-34) U/L Alkaline Phosphatase 46 (38-126) U/L Troponin I (0.000-0.034) ng/mL Total Protein 7.4 (6.3-8.2) g/dL Albumin 4.2 (3.5-5.0) g/dL Urine Color Urine Appearance (Clear) Urine pH (5.0-8.0) Ur Specific [place] (1.001-1.035) Urine Protein (Negative) Urine Glucose (UA) (Negative) Urine Ketones (Negative) Urine Blood (Negative) Urine Nitrite (Negative) Urine Bilirubin (Negative) Urine Urobilinogen (<2.0) mg/dL Ur Leukocyte Esterase (Negative) Urine RBC (0-5) /hpf Urine WBC (0-5) /hpf Ur Squamous Epith Cells (0-4) /hpf Urine Mucus (None) /hpf 07/11/24 07/11/24 Range/Units 15:39 20:37 WBC (3.8-10.6) k/uL RBC (3.80-5.40) m/uL Hgb (11.4-16.0) gm/dL Hct (34.0-46.0) % MCV (80.0-100.0) fL MCH (25.0-35.0) pg MCHC (31.0-37.0) g/dL RDW (11.5-15.5) % Plt Count (150-450) k/uL MPV Neutrophils % % Lymphocytes % % Monocytes % % Eosinophils % % Basophils % % Neutrophils # (1.3-7.7) k/uL Lymphocytes # (1.0-4.8) k/uL Monocytes # (0-1.0) k/uL Eosinophils # (0-0.7) k/uL Basophils # (0-0.2) k/uL PT (10.0-12.5) sec INR (<1.2) APTT (22.0-30.0) sec Sodium (137-145) mmol/L Potassium (3.5-5.1) mmol/L Chloride (98-107) mmol/L Carbon Dioxide (22-30) mmol/L Anion Gap mmol/L BUN (7-17) mg/dL Creatinine (0.52-1.04) mg/dL Est GFR (CKD-EPI)AfAm (>60 ml/min/1.73 sqM) Est GFR (CKD-EPI)NonAf (>60 ml/min/1.73 sqM) Glucose (74-99) mg/dL Calcium (8.4-10.2) mg/dL Magnesium (1.6-2.3) mg/dL Total Bilirubin (0.2-1.3) mg/dL AST (14-36) U/L ALT (4-34) U/L Alkaline Phosphatase (38-126) U/L Troponin I <0.012 (0.000-0.034) ng/mL Total Protein (6.3-8.2) g/dL Albumin (3.5-5.0) g/dL Urine Color Colorless Urine Appearance Clear (Clear) Urine pH 5.0 (5.0-8.0) Ur Specific [place] >1.355 H (1.001-1.035) Urine Protein Negative (Negative) Urine Glucose (UA) Negative (Negative) Urine Ketones Negative (Negative) Urine Blood Negative (Negative) Urine Nitrite Negative (Negative) Urine Bilirubin Negative (Negative) Urine Urobilinogen <2.0 (<2.0) mg/dL Ur Leukocyte Esterase Negative (Negative) Urine RBC 1 (0-5) /hpf Urine WBC 1 (0-5) /hpf Ur Squamous Epith Cells 3 (0-4) /hpf Urine Mucus Rare H (None) /hpf Disposition Clinical Impression: Abdominal pain, Nausea & vomiting Disposition: HOME SELF-CARE Condition: Stable Instructions (If sedation given, give patient instructions): Acute Nausea and Vomiting (ED) Additional Instructions: Please utilize the Zofran every 8 hours as needed for nausea. Talk to your doctor about decreasing the dose of your medication. Return to the emergency department for any new or worsening symptoms Prescriptions: Ondansetron Odt [Zofran Odt] 4 mg PO Q8HR PRN #20 tab PRN Reason: Nausea Is patient prescribed a controlled substance at d/c from ED?: No Referrals: Keagan Garrison MD [Primary Care Provider] - 1-2 days Time of Disposition: 20:22
[2024-07-11] MEDS: SODIUM CHLORIDE 0.9% 1,000 ML IV ONE (19:03)
--- NOTE | 2024-07-11 19:26 | CT ---
EXAMINATION TYPE: CT abdomen pelvis w con DATE OF EXAM: 07/11/2024 7:00 PM COMPARISON: CT abdomen pelvis most recent from 05/12/2021 CLINICAL INDICATION: Female, 44 years old with history of nausea, vomiting, abd pain; nausea, vomitin g, abd pain TECHNIQUE: Axial CT abdomen pelvis w con;Sagittal and coronal reformats were created on a separate w orkstation. Contrast used:100 mL of Isovue 300 with IV Contrast, (none if empty) Oral contrast used: without Oral Contrast (none if empty) CT DLP: 3566.3 mGycm, Automated exposure control for dose reduction was used. FINDINGS: LOWER CHEST: Unremarkable ABDOMEN LIVER: Unremarkable GALLBLADDER AND BILE DUCTS: The gallbladder is surgically absent. PANCREAS: Unremarkable. SPLEEN: Unremarkable. ADRENAL GLANDS: Unremarkable. KIDNEYS AND URETERS: No evidence of hydronephrosis or renal calculus. The ureters are unremarkable. PELVIS BLADDER: No evidence for wall thickening or mass given limitations of exam. REPRODUCTIVE: The uterus is surgically absent. ABDOMEN & PELVIS STOMACH AND BOWEL: No evidence of bowel obstruction. The appendix is not visualized and may be surgic ally absent. PERITONEUM/RETROPERITONEUM: No evidence of pneumoperitoneum or free fluid. VASCULATURE: No evidence of aortic aneurysm. MUSCULOSKELETAL: No acute osseous abnormalities LYMPH NODES: No gross evidence for lymphadenopathy. SOFT TISSUE/ABDOMINAL WALL: Unremarkable IMPRESSION: No evidence for acute intra-abdominal process. No evidence for obstructive uropathy or renal calculus . The appendix appears surgically absent. [facility], , 07/11/2024 7:23 PM
[2024-07-11 21:11] LABS: Appearance,Urine Clear (Clear); Color,Urine Colorless; Mucus,Urine Rare /hpf; RBC,Urine 1 /hpf (0-5); Squamous Epithelial Cell,Urine 3 /hpf (0-4); WBC,Urine 1 /hpf (0-5)
[2024-07-11 21:12] LABS: Bilirubin,Urine Negative (Negative); Blood,Urine Negative (Negative); Glucose,Urine (UA) Negative (Negative); Ketones,Urine Negative (Negative); Leukocyte Esterase,Urine Negative (Negative); Nitrite,Urine Negative (Negative); Protein,Urine Negative (Negative); Urobilinogen,Urine <2.0 mg/dL (<2.0)
[2024-07-11] MEDS: ONDANSETRON 4 MG ODT STARTER PACK 2 TAB BTL PO STA (21:13)
[2024-07-11 21:18] VITALS: BP 108/74; PULSE 81
[2024-07-11 21:20] LABS: Specific Gravity,Urine >1.355 (1.001-1.035)
--- NOTE | 2024-07-12 08:10 | XR ---
EXAMINATION TYPE: XR chest 2V DATE OF EXAM: 07/11/2024 4:39 PM COMPARISON: Chest radiographs from 06/09/2021 CLINICAL INDICATION: Female, 44 years old with history of Chest Pain; [facility] TECHNIQUE: XR chest 2V Frontal and lateral views of the chest. FINDINGS: Heart upper limits of normal in size. Mild interstitial prominence without consolidation or pleural e ffusion. IMPRESSION: Mild interstitial prominence which could reflect bronchitis, asthma, or mild pulmonary vascular conge stion. Clinically correlate. [facility], , 07/12/2024 8:07 AM
== END 2024-07-11 21:18 | disposition home or self-care (01) ==
LOC: EC 15:03
DX: R10.9 Unspecified abdominal pain (principal); R11.2 Nausea with vomiting, unspecified; E66.9 Obesity, unspecified; Z68.43 Body mass index [BMI] 50.0-59.9, adult
CPT/HCPCS: 36415; 93005; 80053; 83735; 84484; 85025; 85610; 85730; 81003; 71046; 74177; 99285; 96374; 96361; J2405; S0119; Q9967

== ENCOUNTER → 2024-10-07 | Outpatient (CLI) | payer BC ==
--- NOTE | 2024-10-08 08:13 | MM ---
Reason for Exam: Screening (asymptomatic). Last mammogram was performed 1 year(s) and 1 month(s) ago. Patient History: Menarche at age 13. Patient has no children. Hysterectomy at age 41. Patient used Hormonal Contraceptives for 10 years. Maternal grandmother had breast cancer, age 60. Maternal cousin had breast cancer, age 25. Risk Values: Carmella 5 year model risk: 0.8%. NCI Lifetime model risk: 10.8%. Prior Study Comparison: 06/23/2022 Bilateral MG screening mammo w CAD, [facility]. 06/29/2022 Right MG 3D work up w/cad RT, [facility]. 08/17/2023 Bilateral MG screening mammo w CAD, [facility]. Tissue Density: The breasts are heterogeneously dense, which may obscure small masses. Findings: Analyzed By CAD. There is no suspicious group of microcalcifications or new suspicious mass in either breast. Tiny appearing calcifications noted. Lipid oil cyst incidentally noted within the right breast stable. More coarsened calcifications may related to tiny fibroadenoma stable. Overall Assessment: Benign, BI-RAD 2 Management: Screening Mammogram of both breasts in 1 year. . Patient should continue monthly self-breast exams. A clinical breast exam by your physician is recommended on an annual basis. This exam should not preclude additional follow-up of suspicious palpable abnormalities. Note on Carmella scores and lifetime risk: 1. A Carmella score greater than 3% is considered moderate risk. If this is the case, consider specialist referral to assess eligibility for a risk reducing agent. 2. If overall lifetime risk for the development of breast cancer is 20% or higher, the patient may qualify for future screening with alternating mammogram and breast MRI. [facility], , 10/08/2024 8:10 AM. Electronically signed and approved by: Jero Murcia M.D. [facility]
== END | disposition home or self-care (01) ==
LOC: RADMAMWWP 15:53
PROVIDERS: ATTEND Obstetrics & Gynecology Obstetrics
DX: Z12.31 Encounter for screening mammogram for malignant neoplasm of breast (principal); R92.333 Mammographic heterogeneous density, bilateral breasts; R92.1 Mammographic calcification found on diagnostic imaging of breast; Z80.3 Family history of malignant neoplasm of breast; Z92.0 Personal history of contraception
CPT/HCPCS: 77067